=== PATIENT | female | born 1940 | race Caucasian/White ===

== ENCOUNTER 2018-08-10 13:05 | Inpatient (IN) | payer MEDICARE, OTHER, MEDICAID ==
[2018-08-10 14:09] LABS: ADD MAN DIFF? NO
[2018-08-10 14:16] LABS: BASOPHIL # 0.1 10^3/ul (0.0-0.1); BASOPHILS % 0.9 % (0.0-2.0); EOSINOPHILS % 0.3 % (0.0-7.0); HEMATOCRIT 35.8 % (37.0-47.0); HEMOGLOBIN 11.8 g/dl (12.0-16.0); LYMPHOCYTES # 2.3 10^3/ul (0.8-2.9); LYMPHOCYTES % 24.9 % (15.0-51.0); MEAN CORPUSCULAR HEMOGLOBIN 31.9 pg (29.0-33.0); MEAN CORPUSCULAR VOLUME 96.8 fl (82.0-101.0); MONOCYTE # 0.9 10^3/ul (0.3-0.9); MONOCYTES % 9.4 % (0.0-11.0); NEUTROPHIL # 5.5 10^3/ul (1.6-7.5); NEUTROPHILS % 59.7 % (39.0-77.0); PLATELET COUNT 142 10^3/UL (140-415)
[2018-08-10 14:16] LABS: WHITE BLOOD COUNT 9.3 10^3/ul (4.8-10.8)
[2018-08-10 14:35] LABS: INR 0.93; PROTIME 12.6 Sec (11.9-14.9)
[2018-08-10 14:36] LABS: PARTIAL THROMBOPLASTIN TIME 26.9 Sec (25.0-35.0)
[2018-08-10 14:43] LABS: ALANINE AMINOTRANSFERASE 7 IU/L (13-69); ALBUMIN 3.7 g/dl (3.3-4.9); ALBUMIN/GLOBULIN RATIO 1.08; ALKALINE PHOSPHATASE 57 IU/L (42-121); ANION GAP 19 (8-16); ASPARTATE AMINO TRANSFERASE 29 IU/L (15-46); BILIRUBIN,INDIRECT 0.3 mg/dl (0-1.1); BILIRUBIN,TOTAL 0.3 mg/dl (0.2-1.3); BLOOD UREA NITROGEN 84 mg/dl (7-20); CALCIUM 9.4 mg/dl (8.4-10.2); CARBON DIOXIDE 33 mmol/L (21-31); CHLORIDE 88 mmol/L (97-110); CREATININE 1.63 mg/dl (0.44-1.00); GLUCOSE 91 mg/dl (70-220); SODIUM 137 mmol/L (135-144); TOTAL PROTEIN 7.1 g/dl (6.1-8.1)
[2018-08-10 14:46] LABS: POTASSIUM 2.8 mmol/L (3.5-5.1)
[2018-08-10 14:47] LABS: TROPONIN-I 0.123 ng/ml (0.000-0.120)
[2018-08-10] MEDS: SOD CHLORIDE 0.9% 500 ML IV (15:00)
[2018-08-10] MEDS: ASPIRIN 81 MG TAB PO (15:00)
[2018-08-10] MEDS: POTASSIUM CHLORIDE 100 ML IVPB ×3 (15:26→20:18)
[2018-08-10] MEDS ORDERED: ACETAMINOPHEN 325 MG TAB PO (15:30)
[2018-08-10] MEDS ORDERED: ONDANSETRON 4 MG INJ IV (15:30)
[2018-08-10] MEDS: MAGNESIUM SULFATE 1 GM/D5W 100 ML IVPB (16:25)
[2018-08-10] MEDS ORDERED: HYPROMELLOSE BOTH EYES (21:00)
[2018-08-10] MEDS ORDERED: DEXTRAN BOTH EYES (21:00)
[2018-08-10] MEDS ORDERED: traMADol 50 MG TAB PO (21:00)
[2018-08-10] MEDS ORDERED: [UNRECOGNIZED DRUG - OTHER] BOTH EYES (21:00)
[2018-08-10] MEDS ORDERED: ARTIFICIAL TEARS 15 ML OPH BOTH EYES (21:30)
[2018-08-10] MEDS ORDERED: POTASSIUM CHLORIDE 30 MEQ in SOD CHLORIDE 0.45% 1,000 ML IV (22:00)
[2018-08-10] MEDS: DIVALPROEX (EC) 500 MG TAB PO (23:00)
[2018-08-10] MEDS: SOD CHLORIDE 0.9% 1,000 ML IV (23:21)
[2018-08-11] MEDS: PANTOPRAZOLE 40 MG INJ IV (00:01)
[2018-08-11] MEDS: SOD CHLORIDE 0.9% 1,000 ML IV ×2 (00:38→09:30)
[2018-08-11 01:48] LABS: TROPONIN-I 0.134 ng/ml (0.000-0.120)
[2018-08-11] MEDS: POTASSIUM CHLORIDE 100 ML IVPB (01:52)
[2018-08-11 06:58] LABS: WHITE BLOOD COUNT 6.1 10^3/ul (4.8-10.8)
[2018-08-11 06:58] LABS: ABNORMAL IP MESSAGE 1; HEMATOCRIT 30.8 % (37.0-47.0); HEMOGLOBIN 10.2 g/dl (12.0-16.0); MEAN CORPUSCULAR HEMOGLOBIN 32.4 pg (29.0-33.0); MEAN CORPUSCULAR HGB CONC 33.1 g/dl (32.0-37.0); MEAN CORPUSCULAR VOLUME 97.8 fl (82.0-101.0); MEAN PLATELET VOLUME 9.8 fl (7.4-10.4); PLATELET COUNT 116 10^3/UL (140-415); RED BLOOD COUNT 3.15 10^6/ul (4.20-5.40); RED CELL DISTRIBUTION WIDTH 13.2 % (11.5-14.5)
[2018-08-11 07:30] LABS: ADD MAN DIFF? YES; POSITIVE DIFF @See below
[2018-08-11 07:35] LABS: ANION GAP 14 (8-16); BLOOD UREA NITROGEN 54 mg/dl (7-20); CALCIUM 8.6 mg/dl (8.4-10.2); CARBON DIOXIDE 31 mmol/L (21-31); CHLORIDE 101 mmol/L (97-110); CREATININE 0.95 mg/dl (0.44-1.00); GLUCOSE 88 mg/dl (70-220); POTASSIUM 3.6 mmol/L (3.5-5.1); SODIUM 142 mmol/L (135-144)
[2018-08-11 07:36] LABS: TROPONIN-I 0.119 ng/ml (0.000-0.120)
[2018-08-11 09:29] LABS: BAND NEUTROPHILS #M 0.7 10^3/ul (0.0-0.6); BAND NEUTROPHILS % (M) 12 % (0-4); EOSINOPHILS % (M) 1 % (0-7); LYMPHOCYTES #M 1.1 10^3/ul (0.8-2.9); LYMPHOCYTES % (M) 19 % (15-51); METAMYELOCYTES %M 1 % (0-0); MONOCYTE #M 0.7 10^3/ul (0.3-0.9); MONOCYTES % (M) 13 % (0-11); MYELOCYTES #M 0.4 10^3/ul (0.0-0.0); MYELOCYTES % (M) 7 % (0-0); PLATELET ESTIMATE DECREASED; POIKILOCYTOSIS 1+ (0-0); REACTIVE LYMPHOCYTES #M 0.1 10^3/ul (0.0-0.0); REACTIVE LYMPHOCYTES% (M) 3 % (0-0); SEG NEUT #M 2.7 10^3/ul (1.6-7.5); SEGMENTED NEUTROPHILS (M) % 44 % (39-77); SMUDGE%M 3 % (0-0)
[2018-08-11] MEDS: ESCITALOPRAM 10 MG TAB PO (10:34)
[2018-08-11] MEDS: ASPIRIN 81 MG TAB PO (10:35)
[2018-08-11] MEDS: DIVALPROEX (EC) 500 MG TAB PO ×2 (10:35→20:23)
[2018-08-11] MEDS: ACETAMINOPHEN 325 MG TAB PO (10:35)
[2018-08-11] MEDS: POLYETHYLENE GLYCOL 17 GM PACKET PO ×2 (10:36→10:47)
[2018-08-11 14:13] LABS: TROPONIN-I 0.075 ng/ml (0.000-0.120)
[2018-08-11] MEDS: 1/2 NS + KCL 20 MEQ 1,000 ML IV (17:27)
[2018-08-12] MEDS: 1/2 NS + KCL 20 MEQ 1,000 ML IV ×2 (03:10→20:34)
[2018-08-12 07:13] LABS: WHITE BLOOD COUNT 5.5 10^3/ul (4.8-10.8)
[2018-08-12 07:13] LABS: ABNORMAL IP MESSAGE 1; HEMATOCRIT 30.2 % (37.0-47.0); HEMOGLOBIN 9.9 g/dl (12.0-16.0); MEAN CORPUSCULAR HEMOGLOBIN 32.5 pg (29.0-33.0); MEAN CORPUSCULAR HGB CONC 32.8 g/dl (32.0-37.0); MEAN PLATELET VOLUME 9.4 fl (7.4-10.4); PLATELET COUNT 116 10^3/UL (140-415); RED BLOOD COUNT 3.05 10^6/ul (4.20-5.40); RED CELL DISTRIBUTION WIDTH 13.2 % (11.5-14.5)
[2018-08-12 07:22] LABS: ADD MAN DIFF? YES; POSITIVE DIFF @See below
[2018-08-12 07:59] LABS: URIC ACID 9.9 mg/dl (3.1-7.9)
[2018-08-12 08:05] LABS: ANION GAP 12 (8-16); BLOOD UREA NITROGEN 27 mg/dl (7-20); CALCIUM 9.1 mg/dl (8.4-10.2); CARBON DIOXIDE 32 mmol/L (21-31); CHLORIDE 102 mmol/L (97-110); CREATININE 0.74 mg/dl (0.44-1.00); GLUCOSE 84 mg/dl (70-220); POTASSIUM 3.6 mmol/L (3.5-5.1); SODIUM 142 mmol/L (135-144)
[2018-08-12] MEDS: DIVALPROEX (EC) 500 MG TAB PO ×2 (09:00→20:34)
[2018-08-12] MEDS: ESCITALOPRAM 10 MG TAB PO (09:00)
[2018-08-12 10:02] LABS: BAND NEUTROPHILS #M 0.4 10^3/ul (0.0-0.6); BAND NEUTROPHILS % (M) 8 % (0-4); ERYTHROBLAST% (NRBC) (M) 1 % (0-0); LYMPHOCYTES #M 1.8 10^3/ul (0.8-2.9); LYMPHOCYTES % (M) 34 % (15-51); MONOCYTE #M 0.4 10^3/ul (0.3-0.9); MONOCYTES % (M) 9 % (0-11); MYELOCYTES #M 0.1 10^3/ul (0.0-0.0); MYELOCYTES % (M) 3 % (0-0); PLATELET ESTIMATE DECREASED; REACTIVE LYMPHOCYTES #M 0.1 10^3/ul (0.0-0.0); REACTIVE LYMPHOCYTES% (M) 3 % (0-0); SEG NEUT #M 2.4 10^3/ul (1.6-7.5); SEGMENTED NEUTROPHILS (M) % 43 % (39-77); SMUDGE%M 11 % (0-0)
[2018-08-12] MEDS: DICLOFENAC SODIUM 1% GEL 100 GM TUBE TP ×2 (12:28→20:35)
[2018-08-12] MEDS: LACTULOSE 30ML CUP PO ×4 (14:47→20:34)
[2018-08-12] MEDS: METHYLPREDNISOLONE 40 MG INJ IV (14:47)
[2018-08-12 15:50] LABS: RETICULOCYTE COUNT # 0.049 X10^6 (0.020-0.110); RETICULOCYTE COUNT % 1.8 % (0.5-1.5)
[2018-08-12 16:07] LABS: LACTATE DEHYDROGENASE 461 IU/L (313-618)
[2018-08-12 16:07] LABS: ANION GAP 11 (8-16); BLOOD UREA NITROGEN 21 mg/dl (7-20); CALCIUM 9.1 mg/dl (8.4-10.2); CARBON DIOXIDE 30 mmol/L (21-31); CHLORIDE 102 mmol/L (97-110); CREATININE 0.62 mg/dl (0.44-1.00); GLUCOSE 97 mg/dl (70-220); IRON 79 ug/dl (35-150); POTASSIUM 3.5 mmol/L (3.5-5.1); SODIUM 139 mmol/L (135-144)
[2018-08-12 16:16] LABS: % IRON SATURATION 32 % SAT (22-52); TOTAL IRON BINDING CAPACITY 247 ug/dl (241-421)
[2018-08-12] MEDS: FEBUXOSTAT 40 MG TABLET PO (16:16)
[2018-08-12 16:18] LABS: INR 0.99; PARTIAL THROMBOPLASTIN TIME 28.6 Sec (25.0-35.0); PROTIME 13.2 Sec (11.9-14.9)
[2018-08-12 16:21] LABS: D-DIMER 414.28 ng/ml (<460)
[2018-08-12 16:23] LABS: THROMBIN TIME 15.8 SEC (13.8-19.1)
[2018-08-12 16:42] LABS: CARCINOEMBRYONIC ANTIGEN 3.7 ng/ml (0.0-5.0)
[2018-08-12 17:23] LABS: ERYTHROCYTE SEDIMENTATION RATE 52 mm/Hr (0-30)
[2018-08-12 17:31] LABS: FOLATE > 20.0 ng/ml (2.8-20.0)
[2018-08-12 18:01] LABS: FIBRIN SPLIT PRODUCT <10 ug/ml (<10)
[2018-08-12 18:16] LABS: PLATELET COUNT 128 10^3/UL (140-415)
[2018-08-12] MEDS: ONDANSETRON 4 MG INJ IV (20:41)
[2018-08-12] MEDS: morphine 2 MG INJ IV (21:01)
[2018-08-13] MEDS: LACTULOSE 30ML CUP PO ×8 (02:54→21:00)
[2018-08-13] MEDS: POLYETHYLENE GLYCOL 17 GM PACKET PO (09:00)
[2018-08-13] MEDS: DICLOFENAC SODIUM 1% GEL 100 GM TUBE TP ×2 (10:05→21:18)
[2018-08-13] MEDS: LORAZEPAM 0.5 MG TAB PO ×2 (10:12→20:44)
[2018-08-13] MEDS: DIVALPROEX (EC) 500 MG TAB PO ×2 (10:12→21:00)
[2018-08-13] MEDS: FEBUXOSTAT 40 MG TABLET PO (10:12)
[2018-08-13] MEDS: METHYLPREDNISOLONE 40 MG INJ IV (10:12)
[2018-08-13] MEDS: ESCITALOPRAM 10 MG TAB PO (10:13)
[2018-08-13] MEDS: 1/2 NS + KCL 20 MEQ 1,000 ML IV ×2 (11:30→20:44)
[2018-08-13 11:37] LABS: WHITE BLOOD COUNT 6.6 10^3/ul (4.8-10.8)
[2018-08-13 11:38] LABS: ABNORMAL IP MESSAGE 1; HEMATOCRIT 30.3 % (37.0-47.0); MEAN CORPUSCULAR HEMOGLOBIN 31.9 pg (29.0-33.0); MEAN CORPUSCULAR VOLUME 96.8 fl (82.0-101.0); MEAN PLATELET VOLUME 9.5 fl (7.4-10.4); PLATELET COUNT 144 10^3/UL (140-415); RED BLOOD COUNT 3.13 10^6/ul (4.20-5.40); RED CELL DISTRIBUTION WIDTH 12.8 % (11.5-14.5)
[2018-08-13 11:44] LABS: POSITIVE DIFF @See below
[2018-08-13 11:45] LABS: ADD MAN DIFF? YES
[2018-08-13 11:58] LABS: ANION GAP 9 (8-16); BLOOD UREA NITROGEN 18 mg/dl (7-20); CALCIUM 9.4 mg/dl (8.4-10.2); CARBON DIOXIDE 33 mmol/L (21-31); CHLORIDE 100 mmol/L (97-110); CREATININE 0.68 mg/dl (0.44-1.00); GLUCOSE 80 mg/dl (70-220); IRON 90 ug/dl (35-150); POTASSIUM 4.2 mmol/L (3.5-5.1); SODIUM 138 mmol/L (135-144)
[2018-08-13 12:07] LABS: % IRON SATURATION 34 % SAT (22-52); TOTAL IRON BINDING CAPACITY 265 ug/dl (241-421)
[2018-08-13 12:10] LABS: LACTATE DEHYDROGENASE 545 IU/L (313-618)
[2018-08-13 12:10] LABS: CHOL/HDL RATIO 3.2 RATIO; CHOLESTEROL 170 mg/dl (100-200); HDL CHOLESTEROL 52 mg/dl (33-92); LDL CHOLESTEROL,CALCULATED 83 mg/dl; TRIGLYCERIDES 173 mg/dl (0-149)
[2018-08-13 12:15] LABS: FREE T4 (FREE THYROXINE) 1.17 ng/dl (0.78-2.44)
[2018-08-13 13:17] LABS: FOLATE > 20.0 ng/ml (2.8-20.0)
[2018-08-13 13:22] LABS: BAND NEUTROPHILS #M 0.3 10^3/ul (0.0-0.6); BAND NEUTROPHILS % (M) 5 % (0-4); LYMPHOCYTES #M 1.8 10^3/ul (0.8-2.9); LYMPHOCYTES % (M) 28 % (15-51); MONOCYTE #M 0.3 10^3/ul (0.3-0.9); MONOCYTES % (M) 5 % (0-11); MYELOCYTES #M 0.1 10^3/ul (0.0-0.0); MYELOCYTES % (M) 2 % (0-0); OVALOCYTES 1+ (0-0); PLATELET ESTIMATE NORMAL; PROMYELOCYTES #M 0.1 10^3/ul (0-0); PROMYELOCYTES % (M) 2 % (0-0); REACTIVE LYMPHOCYTES #M 0.4 10^3/ul (0.0-0.0); REACTIVE LYMPHOCYTES% (M) 7 % (0-0); SEG NEUT #M 3.4 10^3/ul (1.6-7.5); SEGMENTED NEUTROPHILS (M) % 51 % (39-77); SMUDGE%M 70 % (0-0)
[2018-08-14] MEDS: LACTULOSE 30ML CUP PO ×8 (03:00→21:00)
[2018-08-14] MEDS: 1/2 NS + KCL 20 MEQ 1,000 ML IV ×2 (05:10→21:32)
[2018-08-14] MEDS: LORAZEPAM 0.5 MG TAB PO ×2 (05:41→16:24)
[2018-08-14] MEDS: SOD CHLORIDE 0.9% 500 ML IV (08:00)
[2018-08-14] MEDS: FEBUXOSTAT 40 MG TABLET PO (09:00)
[2018-08-14] MEDS: POLYETHYLENE GLYCOL 17 GM PACKET PO (09:00)
[2018-08-14] MEDS: DIVALPROEX (EC) 500 MG TAB PO ×2 (09:00→21:31)
[2018-08-14] MEDS: METHYLPREDNISOLONE 40 MG INJ IV (09:20)
[2018-08-14] MEDS: ESCITALOPRAM 10 MG TAB PO (09:21)
[2018-08-14] MEDS: DICLOFENAC SODIUM 1% GEL 100 GM TUBE TP ×2 (09:22→21:31)
[2018-08-14 17:04] LABS: ABNORMAL IP MESSAGE 1; HEMATOCRIT 31.8 % (37.0-47.0); HEMOGLOBIN 10.4 g/dl (12.0-16.0); MEAN CORPUSCULAR HEMOGLOBIN 32.1 pg (29.0-33.0); MEAN CORPUSCULAR HGB CONC 32.7 g/dl (32.0-37.0); MEAN CORPUSCULAR VOLUME 98.1 fl (82.0-101.0); MEAN PLATELET VOLUME 9.3 fl (7.4-10.4); PLATELET COUNT 130 10^3/UL (140-415); RED BLOOD COUNT 3.24 10^6/ul (4.20-5.40); RED CELL DISTRIBUTION WIDTH 12.6 % (11.5-14.5)
[2018-08-14 17:04] LABS: WHITE BLOOD COUNT 5.9 10^3/ul (4.8-10.8)
[2018-08-14 17:23] LABS: URIC ACID 4.5 mg/dl (3.1-7.9)
[2018-08-14 17:23] LABS: ADD MAN DIFF? YES; ANION GAP 12 (8-16); BLOOD UREA NITROGEN 13 mg/dl (7-20); CALCIUM 9.1 mg/dl (8.4-10.2); CARBON DIOXIDE 29 mmol/L (21-31); CHLORIDE 100 mmol/L (97-110); CREATININE 0.57 mg/dl (0.44-1.00); GLUCOSE 120 mg/dl (70-220); POSITIVE DIFF @See below; POTASSIUM 4.8 mmol/L (3.5-5.1); SODIUM 136 mmol/L (135-144)
[2018-08-14 18:22] LABS: BAND NEUTROPHILS #M 0.2 10^3/ul (0.0-0.6); BAND NEUTROPHILS % (M) 4 % (0-4); BASOPHIL #M 0.1 10^3/ul (0.0-0.0); BASOPHILS % (M) 2 % (0-2); GIANT THROMBO% (M) 1 % (0-0); LYMPHOCYTES #M 1.2 10^3/ul (0.8-2.9); LYMPHOCYTES % (M) 21 % (15-51); MONOCYTE #M 0.4 10^3/ul (0.3-0.9); MONOCYTES % (M) 7 % (0-11); MYELOCYTES #M 0.1 10^3/ul (0.0-0.0); MYELOCYTES % (M) 3 % (0-0); PLATELET ESTIMATE NORMAL; SEG NEUT #M 3.7 10^3/ul (1.6-7.5); SEGMENTED NEUTROPHILS (M) % 63 % (39-77); SMUDGE%M 5 % (0-0)
[2018-08-14 18:24] LABS: ERYTHROCYTE SEDIMENTATION RATE 50 mm/Hr (0-30)
[2018-08-15] MEDS: LORAZEPAM 0.5 MG TAB PO ×2 (00:44→20:16)
[2018-08-15] MEDS: LACTULOSE 30ML CUP PO ×8 (03:00→20:17)
[2018-08-15] MEDS: POLYETHYLENE GLYCOL 17 GM PACKET PO (09:00)
[2018-08-15] MEDS: FEBUXOSTAT 40 MG TABLET PO (09:00)
[2018-08-15] MEDS: ESCITALOPRAM 10 MG TAB PO (09:04)
[2018-08-15] MEDS: DIVALPROEX (EC) 500 MG TAB PO ×2 (09:05→20:16)
[2018-08-15] MEDS: METHYLPREDNISOLONE 40 MG INJ IV (09:06)
[2018-08-15] MEDS: DICLOFENAC SODIUM 1% GEL 100 GM TUBE TP ×2 (09:14→20:17)
[2018-08-15] MEDS: FUROSEMIDE 20 MG INJ IV (15:02)
[2018-08-15] MEDS: 1/2 NS + KCL 20 MEQ 1,000 ML IV (17:58)
[2018-08-16] MEDS: LACTULOSE 30ML CUP PO ×8 (02:46→21:00)
[2018-08-16 06:19] LABS: ABNORMAL IP MESSAGE 1; HEMATOCRIT 29.2 % (37.0-47.0); HEMOGLOBIN 9.5 g/dl (12.0-16.0); MEAN CORPUSCULAR HEMOGLOBIN 32.1 pg (29.0-33.0); MEAN CORPUSCULAR HGB CONC 32.5 g/dl (32.0-37.0); MEAN CORPUSCULAR VOLUME 98.6 fl (82.0-101.0); MEAN PLATELET VOLUME 9.2 fl (7.4-10.4); NUCLEATED RED BLOOD CELLS% 0.2 /100WBC (0.0-0.0); PLATELET COUNT 141 10^3/UL (140-415); RED BLOOD COUNT 2.96 10^6/ul (4.20-5.40); RED CELL DISTRIBUTION WIDTH 13.2 % (11.5-14.5)
[2018-08-16 06:19] LABS: WHITE BLOOD COUNT 8.3 10^3/ul (4.8-10.8)
[2018-08-16 06:49] LABS: ADD MAN DIFF? YES; POSITIVE DIFF @See below
[2018-08-16 06:53] LABS: ANION GAP 8 (8-16); BLOOD UREA NITROGEN 14 mg/dl (7-20); CALCIUM 8.6 mg/dl (8.4-10.2); CARBON DIOXIDE 28 mmol/L (21-31); CHLORIDE 107 mmol/L (97-110); CREATININE 0.47 mg/dl (0.44-1.00); GLUCOSE 86 mg/dl (70-220); POTASSIUM 4.3 mmol/L (3.5-5.1); SODIUM 139 mmol/L (135-144)
[2018-08-16] MEDS: 1/2 NS + KCL 20 MEQ 1,000 ML IV ×3 (07:10→23:50)
[2018-08-16] MEDS: FEBUXOSTAT 40 MG TABLET PO (08:54)
[2018-08-16] MEDS: METHYLPREDNISOLONE 40 MG INJ IV (08:54)
[2018-08-16] MEDS: DIVALPROEX (EC) 500 MG TAB PO ×2 (08:54→21:51)
[2018-08-16] MEDS: DICLOFENAC SODIUM 1% GEL 100 GM TUBE TP ×2 (08:54→21:52)
[2018-08-16] MEDS: ESCITALOPRAM 10 MG TAB PO (08:54)
[2018-08-16] MEDS: POLYETHYLENE GLYCOL 17 GM PACKET PO (08:55)
[2018-08-16 09:17] LABS: ANISOCYTOSIS 1+ (0-0); BAND NEUTROPHILS #M 0.2 10^3/ul (0.0-0.6); BAND NEUTROPHILS % (M) 3 % (0-4); LYMPHOCYTES #M 4.1 10^3/ul (0.8-2.9); LYMPHOCYTES % (M) 50 % (15-51); METAMYELOCYTES #M 0.1 10^3/ul (0.0-0.0); METAMYELOCYTES %M 2 % (0-0); MONOCYTE #M 0.4 10^3/ul (0.3-0.9); MONOCYTES % (M) 5 % (0-11); MYELOCYTES % (M) 1 % (0-0); PLATELET ESTIMATE NORMAL; SEG NEUT #M 3.3 10^3/ul (1.6-7.5); SEGMENTED NEUTROPHILS (M) % 39 % (39-77); SMUDGE%M 44 % (0-0)
[2018-08-16] MEDS: LORAZEPAM 0.5 MG TAB PO (21:51)
[2018-08-16 23:00] LABS: OCCULT BLOOD STOOL NEGATIVE (NEGATIVE)
[2018-08-17] MEDS: LACTULOSE 30ML CUP PO ×8 (02:11→20:25)
[2018-08-17] MEDS: METHYLPREDNISOLONE 40 MG INJ IV (08:53)
[2018-08-17] MEDS: DICLOFENAC SODIUM 1% GEL 100 GM TUBE TP ×2 (08:53→20:25)
[2018-08-17] MEDS: FEBUXOSTAT 40 MG TABLET PO (08:53)
[2018-08-17] MEDS: DIVALPROEX (EC) 500 MG TAB PO ×2 (08:53→20:25)
[2018-08-17] MEDS: ESCITALOPRAM 10 MG TAB PO (08:53)
[2018-08-17] MEDS: POLYETHYLENE GLYCOL 17 GM PACKET PO (08:54)
[2018-08-17] MEDS: FUROSEMIDE 20 MG INJ IV (12:51)
[2018-08-17] MEDS: 1/2 NS + KCL 20 MEQ 1,000 ML IV ×2 (12:52→16:24)
[2018-08-17] MEDS: LORAZEPAM 0.5 MG TAB PO (20:25)
[2018-08-17] MEDS: ONDANSETRON 4 MG INJ IV (20:25)
[2018-08-18] MEDS: LACTULOSE 30ML CUP PO ×9 (03:00→23:58)
[2018-08-18] MEDS: DICLOFENAC SODIUM 1% GEL 100 GM TUBE TP ×2 (08:21→20:54)
[2018-08-18] MEDS: DIVALPROEX (EC) 500 MG TAB PO ×2 (08:23→20:46)
[2018-08-18] MEDS: METHYLPREDNISOLONE 40 MG INJ IV (08:23)
[2018-08-18] MEDS: ESCITALOPRAM 10 MG TAB PO (08:24)
[2018-08-18] MEDS: POLYETHYLENE GLYCOL 17 GM PACKET PO (08:24)
[2018-08-18] MEDS: FUROSEMIDE 20 MG TAB PO (08:25)
[2018-08-18] MEDS: FEBUXOSTAT 40 MG TABLET PO (08:25)
[2018-08-18] MEDS: 1/2 NS + KCL 20 MEQ 1,000 ML IV (10:44)
[2018-08-18] MEDS: ONDANSETRON 4 MG INJ IV (10:53)
[2018-08-18] MEDS: LORAZEPAM 0.5 MG TAB PO ×2 (10:53→20:49)
[2018-08-19] MEDS: 1/2 NS + KCL 20 MEQ 1,000 ML IV ×2 (01:50→17:42)
[2018-08-19] MEDS: LACTULOSE 30ML CUP PO ×7 (03:00→21:00)
[2018-08-19] MEDS: ESCITALOPRAM 10 MG TAB PO (08:08)
[2018-08-19] MEDS: METHYLPREDNISOLONE 40 MG INJ IV (08:08)
[2018-08-19] MEDS: FUROSEMIDE 20 MG TAB PO (08:08)
[2018-08-19] MEDS: POLYETHYLENE GLYCOL 17 GM PACKET PO (08:09)
[2018-08-19] MEDS: DIVALPROEX (EC) 500 MG TAB PO ×2 (08:09→21:02)
[2018-08-19] MEDS: FEBUXOSTAT 40 MG TABLET PO (08:09)
[2018-08-19] MEDS: DICLOFENAC SODIUM 1% GEL 100 GM TUBE TP ×2 (08:10→21:02)
[2018-08-20] MEDS: LACTULOSE 30ML CUP PO ×9 (03:00→21:00)
[2018-08-20] MEDS: POLYETHYLENE GLYCOL 17 GM PACKET PO (09:00)
[2018-08-20] MEDS: ESCITALOPRAM 10 MG TAB PO (09:38)
[2018-08-20] MEDS: FEBUXOSTAT 40 MG TABLET PO (09:38)
[2018-08-20] MEDS: DIVALPROEX (EC) 500 MG TAB PO ×2 (09:38→20:54)
[2018-08-20] MEDS: METHYLPREDNISOLONE 40 MG INJ IV (09:39)
[2018-08-20] MEDS: FUROSEMIDE 20 MG TAB PO (09:41)
[2018-08-20] MEDS: LOSARTAN 25 MG TAB PO (09:42)
[2018-08-20] MEDS: DICLOFENAC SODIUM 1% GEL 100 GM TUBE TP ×2 (09:42→20:54)
[2018-08-20] MEDS: 1/2 NS + KCL 20 MEQ 1,000 ML IV (11:10)
[2018-08-20 14:07] LABS: ADD MAN DIFF? NO
[2018-08-20 14:10] LABS: WHITE BLOOD COUNT 8.9 10^3/ul (4.8-10.8)
[2018-08-20 14:10] LABS: BASOPHILS % 0.3 % (0.0-2.0); EOSINOPHILS % 0.1 % (0.0-7.0); HEMATOCRIT 29.1 % (37.0-47.0); HEMOGLOBIN 9.6 g/dl (12.0-16.0); LYMPHOCYTES # 1.4 10^3/ul (0.8-2.9); LYMPHOCYTES % 15.5 % (15.0-51.0); MEAN CORPUSCULAR HEMOGLOBIN 32.5 pg (29.0-33.0); MEAN CORPUSCULAR VOLUME 98.6 fl (82.0-101.0); MEAN PLATELET VOLUME 9.1 fl (7.4-10.4); MONOCYTE # 0.4 10^3/ul (0.3-0.9); MONOCYTES % 4.4 % (0.0-11.0); NEUTROPHIL # 6.7 10^3/ul (1.6-7.5); PLATELET COUNT 223 10^3/UL (140-415); RED BLOOD COUNT 2.95 10^6/ul (4.20-5.40)
[2018-08-20 14:27] LABS: ANION GAP 9 (8-16); BLOOD UREA NITROGEN 19 mg/dl (7-20); CALCIUM 8.9 mg/dl (8.4-10.2); CARBON DIOXIDE 30 mmol/L (21-31); CHLORIDE 102 mmol/L (97-110); CREATININE 0.53 mg/dl (0.44-1.00); GLUCOSE 115 mg/dl (70-220); SODIUM 137 mmol/L (135-144)
[2018-08-20] MEDS: LORAZEPAM 0.5 MG TAB PO (16:55)
[2018-08-20] MEDS ORDERED: morphine LIQ (10 MG/5 ML) CUP PO (17:30)
[2018-08-21] MEDS: LACTULOSE 30ML CUP PO ×7 (03:00→16:49)
[2018-08-21 05:06] LABS: ADD MAN DIFF? NO
[2018-08-21 05:30] LABS: WHITE BLOOD COUNT 9.2 10^3/ul (4.8-10.8)
[2018-08-21 05:30] LABS: BASOPHILS % 0.2 % (0.0-2.0); HEMATOCRIT 30.3 % (37.0-47.0); HEMOGLOBIN 10.2 g/dl (12.0-16.0); LYMPHOCYTES # 2.8 10^3/ul (0.8-2.9); MEAN CORPUSCULAR HEMOGLOBIN 32.6 pg (29.0-33.0); MEAN CORPUSCULAR HGB CONC 33.7 g/dl (32.0-37.0); MEAN CORPUSCULAR VOLUME 96.8 fl (82.0-101.0); MEAN PLATELET VOLUME 9.2 fl (7.4-10.4); MONOCYTE # 0.6 10^3/ul (0.3-0.9); MONOCYTES % 6.4 % (0.0-11.0); NEUTROPHIL # 5.4 10^3/ul (1.6-7.5); NEUTROPHILS % 58.9 % (39.0-77.0); PLATELET COUNT 231 10^3/UL (140-415); RED BLOOD COUNT 3.13 10^6/ul (4.20-5.40); RED CELL DISTRIBUTION WIDTH 13.7 % (11.5-14.5)
[2018-08-21 05:58] LABS: ANION GAP 8 (8-16); BLOOD UREA NITROGEN 20 mg/dl (7-20); CARBON DIOXIDE 34 mmol/L (21-31); CHLORIDE 100 mmol/L (97-110); CREATININE 0.54 mg/dl (0.44-1.00); GLUCOSE 82 mg/dl (70-220); POTASSIUM 3.6 mmol/L (3.5-5.1); SODIUM 138 mmol/L (135-144)
[2018-08-21] MEDS: METHYLPREDNISOLONE 40 MG INJ IV (08:54)
[2018-08-21] MEDS: DIVALPROEX (EC) 500 MG TAB PO (08:55)
[2018-08-21] MEDS: LOSARTAN 25 MG TAB PO (08:55)
[2018-08-21] MEDS: DICLOFENAC SODIUM 1% GEL 100 GM TUBE TP (08:56)
[2018-08-21] MEDS: FUROSEMIDE 20 MG TAB PO (08:56)
[2018-08-21] MEDS: ESCITALOPRAM 10 MG TAB PO (08:56)
[2018-08-21] MEDS: FEBUXOSTAT 40 MG TABLET PO (08:56)
[2018-08-21] MEDS: LORAZEPAM 0.5 MG TAB PO ×2 (08:59→17:16)
[2018-08-21] MEDS: POLYETHYLENE GLYCOL 17 GM PACKET PO (09:00)
== END 2018-08-21 19:00 | DRG 377 ==
LOC: MS1 08-20 12:29 → E/R 13:05 → TEL 15:17
DX: K92.2 Gastrointestinal hemorrhage, unspecified (principal); I21.4 Non-ST elevation (NSTEMI) myocardial infarction; N17.9 Acute kidney failure, unspecified; R64 Cachexia; D72.825 Bandemia; D69.6 Thrombocytopenia, unspecified; D64.9 Anemia, unspecified; E87.6 Hypokalemia; F31.9 Bipolar disorder, unspecified; I10 Essential (primary) hypertension; K62.89 Other specified diseases of anus and rectum; L89.152 Pressure ulcer of sacral region, stage 2; M10.9 Gout, unspecified; R60.9 Edema, unspecified; R53.1 Weakness; Z66 Do not resuscitate; Z68.20 Body mass index [BMI] 20.0-20.9, adult; Z74.01 Bed confinement status; Z87.891 Personal history of nicotine dependence
CPT/HCPCS: 36415; 71045; 73560; 73620; 76775; 80048; 80053; 80061; 82270; 82306; 82378; 82607; 82728; 82746; 83540; 83615; 84439; 84443; 84484; 84560; 85025; 85045; 85049; 85362; 85378; 85384; 85610; 85651; 85670; 85730; 86850; 86900; 86901; 87081; 92526; 92610; 93005; 93306; 93970; 99291-25

== ENCOUNTER 2019-04-23 04:18 | Inpatient (IN) | payer MEDICARE, OTHER ==
[2019-04-23 04:44] LABS: ABNORMAL IP MESSAGE 1; HEMATOCRIT 21.4 % (37.0-47.0); MEAN CORPUSCULAR HEMOGLOBIN 31.2 pg (29.0-33.0); MEAN CORPUSCULAR HGB CONC 29.9 g/dl (32.0-37.0); MEAN CORPUSCULAR VOLUME 104.4 fl (82.0-101.0); MEAN PLATELET VOLUME 11.6 fl (7.4-10.4); NUCLEATED RED BLOOD CELLS% 0.8 /100WBC (0.0-0.0); PLATELET COUNT 195 10^3/UL (140-415); RED BLOOD COUNT 2.05 10^6/ul (4.20-5.40); RED CELL DISTRIBUTION WIDTH 15.3 % (11.5-14.5)
[2019-04-23 04:44] LABS: WHITE BLOOD COUNT 8.9 10^3/ul (4.8-10.8)
[2019-04-23 04:49] LABS: POSITIVE DIFF @See below
[2019-04-23] MEDS: SOD CHLORIDE 0.9% 1,000 ML IV (04:49)
[2019-04-23 04:50] LABS: HEMOGLOBIN 6.4 g/dl (12.0-16.0)
[2019-04-23 04:51] LABS: ADD MAN DIFF? YES
[2019-04-23 05:02] LABS: ALANINE AMINOTRANSFERASE 61 IU/L (13-69); ALBUMIN 1.5 g/dl (3.3-4.9); ALBUMIN/GLOBULIN RATIO 0.78; ALKALINE PHOSPHATASE 55 IU/L (42-121); ANION GAP 3 (5-13); ASPARTATE AMINO TRANSFERASE 122 IU/L (15-46); BILIRUBIN,INDIRECT 0.1 mg/dl (0-1.1); BILIRUBIN,TOTAL 0.1 mg/dl (0.2-1.3); BLOOD UREA NITROGEN 91 mg/dl (7-20); CARBON DIOXIDE 19 mmol/L (21-31); CHLORIDE 133 mmol/L (97-110); CREATININE 1.18 mg/dl (0.44-1.00); GLUCOSE 67 mg/dl (70-220); SODIUM 155 mmol/L (135-144); TOTAL PROTEIN 3.4 g/dl (6.1-8.1)
[2019-04-23 05:03] LABS: INR 1.41; PROTIME 17.4 Sec (11.9-14.9); PT RATIO 1.4
[2019-04-23 05:04] LABS: PARTIAL THROMBOPLASTIN TIME 30.4 Sec (23.0-35.0)
[2019-04-23 05:15] LABS: CALCIUM 4.7 mg/dl (8.4-10.2); POTASSIUM 2.3 mmol/L (3.5-5.1)
[2019-04-23 06:23] LABS: IMMEDIATE SPIN CROSSMATCH 1 2
[2019-04-23 06:24] LABS: ANISOCYTOSIS 1+ (0-0); BAND NEUTROPHILS #M 1.8 10^3/ul (0.0-0.6); BAND NEUTROPHILS % (M) 21 % (0-4); EOSINOPHILS % (M) 1 % (0-7); HYPOCHROMASIA 2+ (0-0); LYMPHOCYTES #M 0.8 10^3/ul (0.8-2.9); LYMPHOCYTES % (M) 10 % (15-51); METAMYELOCYTES %M 1 % (0-0); MONOCYTE #M 0.3 10^3/ul (0.3-0.9); MONOCYTES % (M) 4 % (0-11); MYELOCYTES #M 0.1 10^3/ul (0.0-0.0); MYELOCYTES % (M) 2 % (0-0); PLATELET ESTIMATE NORMAL; SEG NEUT #M 5.6 10^3/ul (1.6-7.5); SEGMENTED NEUTROPHILS (M) % 61 % (39-77); SMUDGE%M 56 % (0-0)
[2019-04-23 06:28] LABS: ADD UMIC YES; UR ASCORBIC ACID NEGATIVE (NEGATIVE); UR BACTERIA FEW /HPF (NONE SEEN); UR BILIRUBIN (Dip) NEGATIVE (NEGATIVE); UR BLOOD (Dip) 1+ mg/dL (NEGATIVE); UR CLARITY SLIGHTLY CLOUDY (CLEAR); UR COLOR YELLOW (YELLOW); UR GLUCOSE (Dip) NEGATIVE (NEGATIVE); UR KETONES (Dip) NEGATIVE (NEGATIVE); UR LEUKOCYTE ESTERASE (Dip) TRACE Leu/ul (NEGATIVE); UR MUCUS FEW /HPF (NONE SEEN); UR NITRITE (Dip) NEGATIVE (NEGATIVE); UR RBC 1 /HPF (0-5); UR RENAL EPITHELIAL CELL FEW /HPF (NONE SEEN); UR SPECIFIC GRAVITY (Dip) 1.017 (1.003-1.030); UR SQUAMOUS EPITHELIAL CELL FEW /HPF (FEW); UR TOTAL PROTEIN (Dip) NEGATIVE (NEGATIVE); UR UROBILINOGEN (Dip) NEGATIVE (NEGATIVE); UR WBC 3 /HPF (0-5)
[2019-04-23] MEDS ORDERED: ACETAMINOPHEN 325 MG TAB PO ×2 (06:30→13:00)
[2019-04-23] MEDS ORDERED: ONDANSETRON 4 MG INJ IV ×2 (06:30→13:00)
[2019-04-23] MEDS: POTASSIUM CHLORIDE 100 ML IVPB ×2 (06:53→09:16)
[2019-04-23 07:20] LABS: LACTIC ACID 2.4 mmol/L (0.5-2.0)
[2019-04-23 09:17] LABS: LACTIC ACID 2.5 mmol/L (0.5-2.0)
[2019-04-23] MEDS ORDERED: LORAZEPAM 2 MG INJ IV (13:00)
[2019-04-23] MEDS ORDERED: NITROGLYCERIN (SL) 0.4 MG TAB SL (13:00)
[2019-04-23] MEDS ORDERED: NACL 0.9% 3 ML SYG IV (13:00)
[2019-04-23] MEDS ORDERED: DOCUSATE SODIUM 100 MG CAP PO (13:00)
[2019-04-23] MEDS ORDERED: MAGNESIUM HYDROXIDE 30ML CUP PO (13:00)
[2019-04-23] MEDS: D5W-0.45 NACL + KCL 20 MEQ 1,000 ML IV ×2 (13:18→23:48)
[2019-04-23] MEDS: CEFEPIME 1GM/50 ML (PMX) 50 ML IVPB ×2 (14:48→20:53)
[2019-04-23] MEDS ORDERED: PENDING SANTYL ORDER FOR WOUND CARE XX (18:00)
[2019-04-23] MEDS: FAMOTIDINE 20 MG INJ IV (20:46)
[2019-04-23] MEDS: ACETAMINOPHEN 650 MG SUPP PR (20:46)
[2019-04-23] MEDS: ENALAPRILAT 1.25 MG INJ IV (20:58)
[2019-04-23] MEDS: LEVALBUTEROL (NEB) 0.63 MG/3 ML AMP HHN (23:59)
[2019-04-24] MEDS: LEVALBUTEROL (NEB) 0.63 MG/3 ML AMP HHN ×4 (02:07→19:41)
[2019-04-24] MEDS: CEFTRIAXONE 1 GM/50 ML (PMX) 50 ML IVPB (03:19)
[2019-04-24] MEDS: AZITHROMYCIN 500MG/NS (PMX) 250 ML IV (03:21)
[2019-04-24 07:51] LABS: ABNORMAL IP MESSAGE 1; HEMATOCRIT 45.1 % (37.0-47.0); HEMOGLOBIN 13.5 g/dl (12.0-16.0); MEAN CORPUSCULAR HEMOGLOBIN 30.8 pg (29.0-33.0); MEAN CORPUSCULAR HGB CONC 29.9 g/dl (32.0-37.0); MEAN CORPUSCULAR VOLUME 102.7 fl (82.0-101.0); MEAN PLATELET VOLUME 11.1 fl (7.4-10.4); NUCLEATED RED BLOOD CELLS% 0.7 /100WBC (0.0-0.0); PLATELET COUNT 200 10^3/UL (140-415); RED BLOOD COUNT 4.39 10^6/ul (4.20-5.40); RED CELL DISTRIBUTION WIDTH 16.3 % (11.5-14.5)
[2019-04-24 07:51] LABS: WHITE BLOOD COUNT 7.1 10^3/ul (4.8-10.8)
[2019-04-24 07:56] LABS: POSITIVE DIFF @See below
[2019-04-24 07:57] LABS: ADD MAN DIFF? YES
[2019-04-24 08:22] LABS: ALANINE AMINOTRANSFERASE 68 IU/L (13-69); ALBUMIN 2.7 g/dl (3.3-4.9); ALBUMIN/GLOBULIN RATIO 0.84; ALKALINE PHOSPHATASE 114 IU/L (42-121); ANION GAP 7 (5-13); ASPARTATE AMINO TRANSFERASE 86 IU/L (15-46); BILIRUBIN,INDIRECT 0.2 mg/dl (0-1.1); BILIRUBIN,TOTAL 0.2 mg/dl (0.2-1.3); BLOOD UREA NITROGEN 74 mg/dl (7-20); CALCIUM 8.3 mg/dl (8.4-10.2); CARBON DIOXIDE 26 mmol/L (21-31); CHLORIDE 131 mmol/L (97-110); CREATININE 1.01 mg/dl (0.44-1.00); GLUCOSE 147 mg/dl (70-220); POTASSIUM 4.6 mmol/L (3.5-5.1); TOTAL PROTEIN 5.9 g/dl (6.1-8.1)
[2019-04-24] MEDS: D5W-0.45 NACL + KCL 20 MEQ 1,000 ML IV (08:39)
[2019-04-24 08:45] LABS: SODIUM 164 mmol/L (135-144)
[2019-04-24] MEDS: DEXTROSE 5% 1,000 ML IV (10:20)
[2019-04-24 10:47] LABS: ANISOCYTOSIS 1+ (0-0); BAND NEUTROPHILS #M 2.5 10^3/ul (0.0-0.6); BAND NEUTROPHILS % (M) 36 % (0-4); LYMPHOCYTES #M 0.8 10^3/ul (0.8-2.9); LYMPHOCYTES % (M) 12 % (15-51); METAMYELOCYTES #M 0.1 10^3/ul (0.0-0.0); METAMYELOCYTES %M 2 % (0-0); MONOCYTE #M 0.2 10^3/ul (0.3-0.9); MONOCYTES % (M) 4 % (0-11); MYELOCYTES % (M) 1 % (0-0); PLATELET ESTIMATE NORMAL; POIKILOCYTOSIS 1+ (0-0); REACTIVE LYMPHOCYTES% (M) 1 % (0-0); SEG NEUT #M 3.3 10^3/ul (1.6-7.5); SEGMENTED NEUTROPHILS (M) % 44 % (39-77); SMUDGE%M 52 % (0-0)
[2019-04-24] MEDS ORDERED: VANCOMYCIN IV PER PHARMACY XX (11:30)
[2019-04-24] MEDS: ACETAMINOPHEN 650 MG SUPP PR (11:38)
[2019-04-24] MEDS: VANCOMYCIN HCL 1.25 GM in SOD CHLORIDE 0.9% 250 ML IVPB (12:51)
[2019-04-24 14:48] LABS: ANION GAP 3 (5-13); BLOOD UREA NITROGEN 65 mg/dl (7-20); CALCIUM 7.9 mg/dl (8.4-10.2); CARBON DIOXIDE 27 mmol/L (21-31); CHLORIDE 131 mmol/L (97-110); CREATININE 0.84 mg/dl (0.44-1.00); GLUCOSE 113 mg/dl (70-220); POTASSIUM 4.2 mmol/L (3.5-5.1)
[2019-04-24 14:58] LABS: CREATININE,URINE RANDOM 51.74 mg/dl (20-320); SODIUM 161 mmol/L (135-144)
[2019-04-24 14:58] LABS: SODIUM,URINE RANDOM 13 mmol/L (30-90)
[2019-04-24 16:16] LABS: ADD UMIC YES; UR ASCORBIC ACID NEGATIVE (NEGATIVE); UR BACTERIA FEW /HPF (NONE SEEN); UR BILIRUBIN (Dip) NEGATIVE (NEGATIVE); UR BLOOD (Dip) 1+ mg/dL (NEGATIVE); UR CLARITY CLOUDY (CLEAR); UR COLOR YELLOW (YELLOW); UR GLUCOSE (Dip) NEGATIVE (NEGATIVE); UR KETONES (Dip) NEGATIVE (NEGATIVE); UR LEUKOCYTE ESTERASE (Dip) NEGATIVE Leu/ul (NEGATIVE); UR MUCUS FEW /HPF (NONE SEEN); UR NITRITE (Dip) NEGATIVE (NEGATIVE); UR RBC 7 /HPF (0-5); UR TOTAL PROTEIN (Dip) 1+ mg/dl (NEGATIVE); UR UROBILINOGEN (Dip) NEGATIVE (NEGATIVE); UR WBC 5 /HPF (0-5)
[2019-04-24 17:13] LABS: OSMOLALITY,URINE 605 mOsm/kg (250-1200)
[2019-04-24] MEDS: FAMOTIDINE 20 MG INJ IV (21:46)
[2019-04-24] MEDS: CEFEPIME 1GM/50 ML (PMX) 50 ML IVPB (21:46)
[2019-04-25] MEDS: DEXTROSE 5% 1,000 ML IV ×3 (00:24→13:38)
[2019-04-25] MEDS: AZITHROMYCIN 500MG/NS (PMX) 250 ML IV (00:25)
[2019-04-25] MEDS: LEVALBUTEROL (NEB) 0.63 MG/3 ML AMP HHN ×4 (02:16→20:18)
[2019-04-25 06:48] LABS: ADD MAN DIFF? NO
[2019-04-25 06:55] LABS: WHITE BLOOD COUNT 7.7 10^3/ul (4.8-10.8)
[2019-04-25 06:55] LABS: ABNORMAL IP MESSAGE 1; BASOPHILS % 0.5 % (0.0-2.0); EOSINOPHILS % 0.1 % (0.0-7.0); HEMATOCRIT 40.1 % (37.0-47.0); HEMOGLOBIN 12.3 g/dl (12.0-16.0); LYMPHOCYTES % 13.2 % (15.0-51.0); MEAN CORPUSCULAR HGB CONC 30.7 g/dl (32.0-37.0); MEAN PLATELET VOLUME 11.6 fl (7.4-10.4); MONOCYTE # 0.1 10^3/ul (0.3-0.9); MONOCYTES % 0.9 % (0.0-11.0); NEUTROPHIL # 6.4 10^3/ul (1.6-7.5); NEUTROPHILS % 83.4 % (39.0-77.0); NUCLEATED RED BLOOD CELLS% 0.3 /100WBC (0.0-0.0); PLATELET COUNT 188 10^3/UL (140-415); RED BLOOD COUNT 3.97 10^6/ul (4.20-5.40); RED CELL DISTRIBUTION WIDTH 16.1 % (11.5-14.5)
[2019-04-25 06:56] LABS: POSITIVE DIFF @See below
[2019-04-25 07:15] LABS: ANION GAP 3 (5-13); BLOOD UREA NITROGEN 51 mg/dl (7-20); CALCIUM 8.3 mg/dl (8.4-10.2); CARBON DIOXIDE 25 mmol/L (21-31); CHLORIDE 130 mmol/L (97-110); CREATININE 0.72 mg/dl (0.44-1.00); GLUCOSE 103 mg/dl (70-220); POTASSIUM 3.7 mmol/L (3.5-5.1); SODIUM 158 mmol/L (135-144)
[2019-04-25 07:41] LABS: BAND NEUTROPHILS #M 3.7 10^3/ul (0.0-0.6); BAND NEUTROPHILS % (M) 49 % (0-4); GIANT THROMBO% (M) 2 % (0-0); LYMPHOCYTES #M 1.2 10^3/ul (0.8-2.9); LYMPHOCYTES % (M) 16 % (15-51); METAMYELOCYTES %M 1 % (0-0); MONOCYTES % (M) 1 % (0-11); PLATELET ESTIMATE NORMAL; POIKILOCYTOSIS 1+ (0-0); POLYCHROMASIA 1+ (0-0); REACTIVE LYMPHOCYTES #M 0.1 10^3/ul (0.0-0.0); REACTIVE LYMPHOCYTES% (M) 2 % (0-0); SEG NEUT #M 2.7 10^3/ul (1.6-7.5); SEGMENTED NEUTROPHILS (M) % 31 % (39-77); SMUDGE%M 10 % (0-0); TOXIC GRANULATION 2+ (0-0)
[2019-04-25] MEDS: CEFEPIME 1GM/50 ML (PMX) 50 ML IVPB ×2 (08:34→22:55)
[2019-04-25] MEDS: VANCOMYCIN 750 MG (PMX) 250 ML IVPB (14:54)
[2019-04-25] MEDS: ACETAMINOPHEN 650 MG SUPP PR (19:47)
[2019-04-25] MEDS: FAMOTIDINE 20 MG INJ IV (22:55)
[2019-04-25] MEDS: BALSAM PERU/CASTOR OIL 60 GM TUBE TOP (22:55)
[2019-04-26] MEDS: AZITHROMYCIN 500MG/NS (PMX) 250 ML IV (01:53)
[2019-04-26] MEDS: LEVALBUTEROL (NEB) 0.63 MG/3 ML AMP HHN ×4 (02:02→20:58)
[2019-04-26] MEDS: DEXTROSE 5% 1,000 ML IV ×3 (02:59→22:18)
[2019-04-26 06:29] LABS: ABNORMAL IP MESSAGE 1; HEMATOCRIT 38.7 % (37.0-47.0); HEMOGLOBIN 11.9 g/dl (12.0-16.0); MEAN CORPUSCULAR HEMOGLOBIN 30.9 pg (29.0-33.0); MEAN CORPUSCULAR HGB CONC 30.7 g/dl (32.0-37.0); MEAN CORPUSCULAR VOLUME 100.5 fl (82.0-101.0); MEAN PLATELET VOLUME 11.1 fl (7.4-10.4); PLATELET COUNT 216 10^3/UL (140-415); RED BLOOD COUNT 3.85 10^6/ul (4.20-5.40); RED CELL DISTRIBUTION WIDTH 15.9 % (11.5-14.5)
[2019-04-26 06:29] LABS: WHITE BLOOD COUNT 9.4 10^3/ul (4.8-10.8)
[2019-04-26 06:33] LABS: ADD MAN DIFF? YES; POSITIVE DIFF @See below
[2019-04-26 07:07] LABS: ANION GAP 4 (5-13); BLOOD UREA NITROGEN 36 mg/dl (7-20); CALCIUM 8.3 mg/dl (8.4-10.2); CARBON DIOXIDE 24 mmol/L (21-31); CHLORIDE 128 mmol/L (97-110); CREATININE 0.75 mg/dl (0.44-1.00); GLUCOSE 88 mg/dl (70-220); MAGNESIUM 2.5 mg/dl (1.7-2.5); PHOSPHORUS 3.3 mg/dl (2.5-4.9); POTASSIUM 3.7 mmol/L (3.5-5.1); SODIUM 156 mmol/L (135-144)
[2019-04-26 08:38] LABS: BAND NEUTROPHILS #M 3.3 10^3/ul (0.0-0.6); BAND NEUTROPHILS % (M) 36 % (0-4); ERYTHROBLAST% (NRBC) (M) 1 % (0-0); LYMPHOCYTES #M 0.6 10^3/ul (0.8-2.9); LYMPHOCYTES % (M) 7 % (15-51); MONOCYTES % (M) 1 % (0-11); PLATELET ESTIMATE NORMAL; POLYCHROMASIA 2+ (0-0); SEG NEUT #M 5.6 10^3/ul (1.6-7.5); SEGMENTED NEUTROPHILS (M) % 56 % (39-77); SMUDGE%M 4 % (0-0)
[2019-04-26] MEDS ORDERED: VANCOMYCIN 1 GM 250 ML IVPB (09:00)
[2019-04-26] MEDS: CEFEPIME 1GM/50 ML (PMX) 50 ML IVPB ×2 (09:06→22:16)
[2019-04-26] MEDS: BALSAM PERU/CASTOR OIL 60 GM TUBE TOP ×2 (09:11→22:16)
[2019-04-26] MEDS: METOLAZONE 2.5 MG TAB PO (09:11)
[2019-04-26 12:32] LABS: CREATININE, RANDOM URINE 65 mg/dL (20-275); MICROALBUMIN 8.9 mg/dL; MICROALBUMIN/CREATININE RATIO 137 (<30)
[2019-04-26] MEDS: VANCOMYCIN 750 MG (PMX) 250 ML IVPB (13:28)
[2019-04-26] MEDS: FAMOTIDINE 20 MG INJ IV (22:18)
[2019-04-27] MEDS: AZITHROMYCIN 500MG/NS (PMX) 250 ML IV (01:26)
[2019-04-27] MEDS: LEVALBUTEROL (NEB) 0.63 MG/3 ML AMP HHN ×4 (01:55→19:30)
[2019-04-27 06:45] LABS: ANION GAP 4 (5-13); BLOOD UREA NITROGEN 25 mg/dl (7-20); CALCIUM 7.8 mg/dl (8.4-10.2); CARBON DIOXIDE 21 mmol/L (21-31); CHLORIDE 124 mmol/L (97-110); CREATININE 0.61 mg/dl (0.44-1.00); GLUCOSE 105 mg/dl (70-220); MAGNESIUM 2.2 mg/dl (1.7-2.5); PHOSPHORUS 3.3 mg/dl (2.5-4.9); SODIUM 149 mmol/L (135-144)
[2019-04-27] MEDS: DEXTROSE 5% 1,000 ML IV (08:43)
[2019-04-27] MEDS: CEFEPIME 1GM/50 ML (PMX) 50 ML IVPB ×2 (08:44→22:10)
[2019-04-27] MEDS: BALSAM PERU/CASTOR OIL 60 GM TUBE TOP ×2 (08:44→22:10)
[2019-04-27] MEDS ORDERED: POTASSIUM CHLORIDE 50 ML IVPB (12:00)
[2019-04-27] MEDS: POTASSIUM CHLORIDE 20 MEQ/SW 100 ML IVPB ×2 (12:25→15:35)
[2019-04-27 14:02] LABS: VANCOMYCIN,TROUGH 10.3 ug/ml (10.0-20.0)
[2019-04-27] MEDS: VANCOMYCIN 750 MG (PMX) 250 ML IVPB (14:40)
[2019-04-27] MEDS: FAMOTIDINE 20 MG INJ IV (22:10)
[2019-04-27] MEDS: ACETAMINOPHEN 650 MG SUPP PR (22:10)
[2019-04-28] MEDS: LEVALBUTEROL (NEB) 0.63 MG/3 ML AMP HHN ×4 (01:53→20:44)
[2019-04-28] MEDS: BALSAM PERU/CASTOR OIL 60 GM TUBE TOP ×2 (09:17→20:28)
[2019-04-28] MEDS: CEFEPIME 1GM/50 ML (PMX) 50 ML IVPB ×2 (10:06→20:28)
[2019-04-28 13:35] LABS: ANION GAP 7 (5-13); BLOOD UREA NITROGEN 29 mg/dl (7-20); CALCIUM 8.1 mg/dl (8.4-10.2); CARBON DIOXIDE 20 mmol/L (21-31); CHLORIDE 124 mmol/L (97-110); CREATININE 0.62 mg/dl (0.44-1.00); GLUCOSE 73 mg/dl (70-220); SODIUM 151 mmol/L (135-144)
[2019-04-28] MEDS: VANCOMYCIN 1 GM 250 ML IVPB (13:37)
[2019-04-28] MEDS: DEXTROSE 5% 1,000 ML IV (13:37)
[2019-04-28] MEDS: FAMOTIDINE 20 MG INJ IV (20:28)
[2019-04-29] MEDS: DEXTROSE 5% 1,000 ML IV ×3 (00:44→18:09)
[2019-04-29] MEDS: ACETAMINOPHEN 650 MG SUPP PR ×2 (00:55→23:53)
[2019-04-29] MEDS: LEVALBUTEROL (NEB) 0.63 MG/3 ML AMP HHN ×4 (01:44→20:42)
[2019-04-29 06:48] LABS: HEMATOCRIT 36.3 % (37.0-47.0); HEMOGLOBIN 11.5 g/dl (12.0-16.0); MEAN CORPUSCULAR HEMOGLOBIN 31.3 pg (29.0-33.0); MEAN CORPUSCULAR HGB CONC 31.7 g/dl (32.0-37.0); MEAN CORPUSCULAR VOLUME 98.6 fl (82.0-101.0); MEAN PLATELET VOLUME 11.1 fl (7.4-10.4); PLATELET COUNT 168 10^3/UL (140-415); RED BLOOD COUNT 3.68 10^6/ul (4.20-5.40); RED CELL DISTRIBUTION WIDTH 15.5 % (11.5-14.5)
[2019-04-29 06:48] LABS: WHITE BLOOD COUNT 4.9 10^3/ul (4.8-10.8)
[2019-04-29 06:49] LABS: ADD MAN DIFF? YES; POSITIVE DIFF @See below
[2019-04-29 07:16] LABS: ANION GAP 5 (5-13); BLOOD UREA NITROGEN 25 mg/dl (7-20); CALCIUM 7.8 mg/dl (8.4-10.2); CARBON DIOXIDE 21 mmol/L (21-31); CHLORIDE 120 mmol/L (97-110); CREATININE 0.57 mg/dl (0.44-1.00); GLUCOSE 129 mg/dl (70-220); MAGNESIUM 1.9 mg/dl (1.7-2.5); PHOSPHORUS 3.1 mg/dl (2.5-4.9); POTASSIUM 3.1 mmol/L (3.5-5.1); SODIUM 146 mmol/L (135-144)
[2019-04-29 08:01] LABS: BAND NEUTROPHILS #M 1.7 10^3/ul (0.0-0.6); BAND NEUTROPHILS % (M) 36 % (0-4); BURR CELLS 1+ (0-0); EOSINOPHILS % (M) 1 % (0-7); GIANT THROMBO% (M) 1 % (0-0); LYMPHOCYTES #M 0.3 10^3/ul (0.8-2.9); LYMPHOCYTES % (M) 8 % (15-51); METAMYELOCYTES %M 1 % (0-0); MYELOCYTES % (M) 1 % (0-0); PLATELET ESTIMATE NORMAL; POIKILOCYTOSIS 1+ (0-0); SEG NEUT #M 2.7 10^3/ul (1.6-7.5); SEGMENTED NEUTROPHILS (M) % 53 % (39-77); SMUDGE%M 9 % (0-0); TOXIC GRANULATION 1+ (0-0); TOXIC VACUOLATION 1+ (0-0)
[2019-04-29] MEDS: CEFEPIME 1GM/50 ML (PMX) 50 ML IVPB ×2 (09:39→20:59)
[2019-04-29] MEDS: POTASSIUM CHLORIDE 100 ML IVPB ×2 (09:39→11:45)
[2019-04-29] MEDS: BALSAM PERU/CASTOR OIL 60 GM TUBE TOP ×2 (09:40→21:13)
[2019-04-29] MEDS: VANCOMYCIN 1 GM 250 ML IVPB (15:26)
[2019-04-29] MEDS: FAMOTIDINE 20 MG INJ IV (21:01)
[2019-04-30] MEDS: LEVALBUTEROL (NEB) 0.63 MG/3 ML AMP HHN ×4 (00:48→19:28)
[2019-04-30] MEDS: DEXTROSE 5% 1,000 ML IV ×2 (05:13→20:44)
[2019-04-30 07:09] LABS: HEMATOCRIT 38.3 % (37.0-47.0); HEMOGLOBIN 12.2 g/dl (12.0-16.0); MEAN CORPUSCULAR HEMOGLOBIN 31.3 pg (29.0-33.0); MEAN CORPUSCULAR HGB CONC 31.9 g/dl (32.0-37.0); MEAN CORPUSCULAR VOLUME 98.2 fl (82.0-101.0); MEAN PLATELET VOLUME 11.3 fl (7.4-10.4); PLATELET COUNT 161 10^3/UL (140-415); RED CELL DISTRIBUTION WIDTH 15.5 % (11.5-14.5)
[2019-04-30 07:09] LABS: WHITE BLOOD COUNT 4.1 10^3/ul (4.8-10.8)
[2019-04-30 07:12] LABS: ADD MAN DIFF? YES; POSITIVE DIFF @See below
[2019-04-30 07:32] LABS: ANION GAP 5 (5-13); BLOOD UREA NITROGEN 22 mg/dl (7-20); CALCIUM 7.9 mg/dl (8.4-10.2); CARBON DIOXIDE 19 mmol/L (21-31); CHLORIDE 118 mmol/L (97-110); CREATININE 0.55 mg/dl (0.44-1.00); GLUCOSE 96 mg/dl (70-220); MAGNESIUM 1.8 mg/dl (1.7-2.5); PHOSPHORUS 2.9 mg/dl (2.5-4.9); POTASSIUM 3.7 mmol/L (3.5-5.1); SODIUM 142 mmol/L (135-144)
[2019-04-30] MEDS: FUROSEMIDE 20 MG INJ IV (08:22)
[2019-04-30] MEDS: CEFEPIME 1GM/50 ML (PMX) 50 ML IVPB ×2 (08:22→20:53)
[2019-04-30] MEDS: BALSAM PERU/CASTOR OIL 60 GM TUBE TOP ×2 (08:23→20:53)
[2019-04-30 09:46] LABS: ANISOCYTOSIS 1+ (0-0); BAND NEUTROPHILS #M 1.1 10^3/ul (0.0-0.6); BAND NEUTROPHILS % (M) 27 % (0-4); BURR CELLS 2+ (0-0); LYMPHOCYTES #M 0.7 10^3/ul (0.8-2.9); LYMPHOCYTES % (M) 18 % (15-51); MYELOCYTES % (M) 1 % (0-0); PLATELET ESTIMATE NORMAL; POIKILOCYTOSIS 2+ (0-0); SEG NEUT #M 2.3 10^3/ul (1.6-7.5); SEGMENTED NEUTROPHILS (M) % 54 % (39-77); SMUDGE%M 13 % (0-0)
[2019-04-30] MEDS: POTASSIUM CHLORIDE 100 ML IVPB (10:16)
[2019-04-30] MEDS: ACETAMINOPHEN 650 MG SUPP PR (18:48)
[2019-04-30] MEDS: FAMOTIDINE 20 MG INJ IV (20:53)
[2019-05-01] MEDS: LEVALBUTEROL (NEB) 0.63 MG/3 ML AMP HHN ×4 (02:09→20:00)
[2019-05-01] MEDS: DEXTROSE 5% 1,000 ML IV (02:45)
[2019-05-01 06:25] LABS: WHITE BLOOD COUNT 2.7 10^3/ul (4.8-10.8)
[2019-05-01 06:25] LABS: ABNORMAL IP MESSAGE 1; HEMATOCRIT 39.4 % (37.0-47.0); HEMOGLOBIN 12.5 g/dl (12.0-16.0); MEAN CORPUSCULAR HEMOGLOBIN 30.8 pg (29.0-33.0); MEAN CORPUSCULAR HGB CONC 31.7 g/dl (32.0-37.0); MEAN PLATELET VOLUME 11.3 fl (7.4-10.4); PLATELET COUNT 162 10^3/UL (140-415); RED BLOOD COUNT 4.06 10^6/ul (4.20-5.40); RED CELL DISTRIBUTION WIDTH 15.4 % (11.5-14.5)
[2019-05-01 06:26] LABS: ADD MAN DIFF? YES; POSITIVE DIFF @See below
[2019-05-01 06:55] LABS: ANION GAP 7 (5-13); BLOOD UREA NITROGEN 22 mg/dl (7-20); CALCIUM 7.9 mg/dl (8.4-10.2); CARBON DIOXIDE 20 mmol/L (21-31); CHLORIDE 113 mmol/L (97-110); CREATININE 0.53 mg/dl (0.44-1.00); GLUCOSE 88 mg/dl (70-220); MAGNESIUM 1.7 mg/dl (1.7-2.5); PHOSPHORUS 3.3 mg/dl (2.5-4.9); POTASSIUM 3.7 mmol/L (3.5-5.1); SODIUM 140 mmol/L (135-144)
[2019-05-01 08:00] LABS: BAND NEUTROPHILS % (M) 39 % (0-4); BURR CELLS 1+ (0-0); GIANT THROMBO% (M) 2 % (0-0); LYMPHOCYTES #M 0.3 10^3/ul (0.8-2.9); LYMPHOCYTES % (M) 14 % (15-51); OVALOCYTES 1+ (0-0); PLATELET ESTIMATE NORMAL; POLYCHROMASIA 1+ (0-0); SEG NEUT #M 1.3 10^3/ul (1.6-7.5); SEGMENTED NEUTROPHILS (M) % 47 % (39-77); SMUDGE%M 8 % (0-0)
[2019-05-01] MEDS: FUROSEMIDE 40 MG INJ IV (08:58)
[2019-05-01] MEDS: POTASSIUM CHLORIDE 100 ML IVPB (08:58)
[2019-05-01] MEDS: BALSAM PERU/CASTOR OIL 60 GM TUBE TOP ×2 (09:03→21:04)
[2019-05-01] MEDS: CEFEPIME 1GM/50 ML (PMX) 50 ML IVPB ×2 (10:56→21:03)
[2019-05-01] MEDS: FAMOTIDINE 20 MG INJ IV (21:03)
[2019-05-02] MEDS: LEVALBUTEROL (NEB) 0.63 MG/3 ML AMP HHN ×4 (02:00→19:57)
[2019-05-02 06:41] LABS: ADD MAN DIFF? NO
[2019-05-02 06:50] LABS: WHITE BLOOD COUNT 2.8 10^3/ul (4.8-10.8)
[2019-05-02 06:50] LABS: BASOPHILS % 0.4 % (0.0-2.0); HEMATOCRIT 40.6 % (37.0-47.0); HEMOGLOBIN 13.3 g/dl (12.0-16.0); LYMPHOCYTES # 0.7 10^3/ul (0.8-2.9); LYMPHOCYTES % 25.6 % (15.0-51.0); MEAN CORPUSCULAR HGB CONC 32.8 g/dl (32.0-37.0); MEAN CORPUSCULAR VOLUME 94.6 fl (82.0-101.0); MEAN PLATELET VOLUME 11.7 fl (7.4-10.4); MONOCYTE # 0.1 10^3/ul (0.3-0.9); MONOCYTES % 2.8 % (0.0-11.0); NEUTROPHILS % 70.1 % (39.0-77.0); PLATELET COUNT 166 10^3/UL (140-415); RED BLOOD COUNT 4.29 10^6/ul (4.20-5.40)
[2019-05-02 07:27] LABS: ANION GAP 5 (5-13); BLOOD UREA NITROGEN 19 mg/dl (7-20); CALCIUM 7.9 mg/dl (8.4-10.2); CARBON DIOXIDE 22 mmol/L (21-31); CHLORIDE 110 mmol/L (97-110); CREATININE 0.57 mg/dl (0.44-1.00); GLUCOSE 94 mg/dl (70-220); MAGNESIUM 1.5 mg/dl (1.7-2.5); PHOSPHORUS 3.2 mg/dl (2.5-4.9); POTASSIUM 3.3 mmol/L (3.5-5.1); SODIUM 137 mmol/L (135-144)
[2019-05-02] MEDS: BALSAM PERU/CASTOR OIL 60 GM TUBE TOP ×2 (09:35→20:31)
[2019-05-02] MEDS: DEXTROSE 5%-0.45% NACL 1,000 ML IV (11:09)
[2019-05-02] MEDS: CEFEPIME 1GM/50 ML (PMX) 50 ML IVPB (11:25)
[2019-05-02] MEDS: FUROSEMIDE 40 MG INJ IV (11:37)
[2019-05-02] MEDS: MAGNESIUM SULFATE 2 GM/50 ML 50 ML IVPB (12:08)
[2019-05-02] MEDS: POTASSIUM CHLORIDE 100 ML IVPB ×3 (14:27→17:18)
[2019-05-02] MEDS ORDERED: POTASSIUM CHLORIDE 100 ML IVPB (14:30)
[2019-05-02] MEDS: MEROPENEM 1 GM/50ML(PMX) 50 ML IVPB (20:31)
[2019-05-02] MEDS: FAMOTIDINE 20 MG INJ IV (20:31)
[2019-05-03] MEDS: LEVALBUTEROL (NEB) 0.63 MG/3 ML AMP HHN ×4 (01:30→20:50)
[2019-05-03] MEDS: DEXTROSE 5%-0.45% NACL 1,000 ML IV ×2 (06:00→19:59)
[2019-05-03 08:50] LABS: ANION GAP 6 (5-13); BLOOD UREA NITROGEN 22 mg/dl (7-20); CALCIUM 8.1 mg/dl (8.4-10.2); CARBON DIOXIDE 23 mmol/L (21-31); CHLORIDE 111 mmol/L (97-110); CREATININE 0.58 mg/dl (0.44-1.00); GLUCOSE 101 mg/dl (70-220); PHOSPHORUS 3.1 mg/dl (2.5-4.9); POTASSIUM 4.3 mmol/L (3.5-5.1); SODIUM 140 mmol/L (135-144)
[2019-05-03] MEDS: MEROPENEM 1 GM/50ML(PMX) 50 ML IVPB ×2 (09:06→19:59)
[2019-05-03] MEDS: BALSAM PERU/CASTOR OIL 60 GM TUBE TOP ×2 (09:07→20:00)
[2019-05-03] MEDS: FAMOTIDINE 20 MG INJ IV (19:59)
[2019-05-04 00:25] LABS: AADO2 Arterial 584.3 mmHg (7.0-24.0); Allen Test ACCEPTAB; Arterial Base Excess -4.1 mmol/L (-3.0-3); Arterial COHb 0.3 % (0.0-3.0); Arterial Fraction of Oxyhgb 96.4 % (93.0-99.0); Arterial MetHb 0.3 % (0.0-1.5); Arterial pCO2 33.5 mmhg (35-45); MODE HFNC; Site Right Radial
[2019-05-04] MEDS: LEVALBUTEROL (NEB) 0.63 MG/3 ML AMP HHN ×4 (01:43→19:46)
[2019-05-04] MEDS: DEXTROSE 5%-0.45% NACL 1,000 ML IV ×2 (02:00→16:25)
[2019-05-04 08:35] LABS: HEMATOCRIT 38.3 % (37.0-47.0); HEMOGLOBIN 12.4 g/dl (12.0-16.0); MEAN CORPUSCULAR HGB CONC 32.4 g/dl (32.0-37.0); MEAN CORPUSCULAR VOLUME 95.8 fl (82.0-101.0); MEAN PLATELET VOLUME 12.1 fl (7.4-10.4); PLATELET COUNT 140 10^3/UL (140-415); RED CELL DISTRIBUTION WIDTH 15.2 % (11.5-14.5)
[2019-05-04 08:35] LABS: WHITE BLOOD COUNT 3.2 10^3/ul (4.8-10.8)
[2019-05-04] MEDS: MEROPENEM 1 GM/50ML(PMX) 50 ML IVPB ×2 (08:41→20:10)
[2019-05-04] MEDS: BALSAM PERU/CASTOR OIL 60 GM TUBE TOP ×2 (08:45→20:11)
[2019-05-04 08:56] LABS: POSITIVE DIFF @See below
[2019-05-04 08:57] LABS: ADD MAN DIFF? YES
[2019-05-04 09:10] LABS: ANION GAP 7 (5-13); BLOOD UREA NITROGEN 20 mg/dl (7-20); CALCIUM 7.7 mg/dl (8.4-10.2); CARBON DIOXIDE 20 mmol/L (21-31); CHLORIDE 113 mmol/L (97-110); CREATININE 0.37 mg/dl (0.44-1.00); GLUCOSE 93 mg/dl (70-220); MAGNESIUM 1.8 mg/dl (1.7-2.5); PHOSPHORUS 2.4 mg/dl (2.5-4.9); SODIUM 140 mmol/L (135-144)
[2019-05-04 12:54] LABS: ANISOCYTOSIS 1+ (0-0); BAND NEUTROPHILS #M 0.7 10^3/ul (0.0-0.6); BAND NEUTROPHILS % (M) 24 % (0-4); BURR CELLS 1+ (0-0); ERYTHROBLAST% (NRBC) (M) 1 % (0-0); GIANT THROMBO% (M) 4 % (0-0); LYMPHOCYTES #M 0.1 10^3/ul (0.8-2.9); LYMPHOCYTES % (M) 6 % (15-51); MONOCYTES % (M) 3 % (0-11); PLATELET ESTIMATE NORMAL; POIKILOCYTOSIS 2+ (0-0); SEG NEUT #M 2.2 10^3/ul (1.6-7.5); SEGMENTED NEUTROPHILS (M) % 67 % (39-77); SMUDGE%M 48 % (0-0); TARGET CELLS 1+ (0-0)
[2019-05-04] MEDS: FAMOTIDINE 20 MG INJ IV (20:10)
[2019-05-05] MEDS: LEVALBUTEROL (NEB) 0.63 MG/3 ML AMP HHN ×4 (01:49→21:22)
[2019-05-05 06:49] LABS: HEMATOCRIT 37.2 % (37.0-47.0); HEMOGLOBIN 11.9 g/dl (12.0-16.0); MEAN CORPUSCULAR HEMOGLOBIN 30.4 pg (29.0-33.0); MEAN CORPUSCULAR VOLUME 95.1 fl (82.0-101.0); MEAN PLATELET VOLUME 12.2 fl (7.4-10.4); PLATELET COUNT 139 10^3/UL (140-415); RED BLOOD COUNT 3.91 10^6/ul (4.20-5.40); RED CELL DISTRIBUTION WIDTH 15.3 % (11.5-14.5)
[2019-05-05 06:49] LABS: WHITE BLOOD COUNT 4.4 10^3/ul (4.8-10.8)
[2019-05-05 06:52] LABS: ADD MAN DIFF? YES; POSITIVE DIFF @See below
[2019-05-05 07:57] LABS: MAGNESIUM 1.7 mg/dl (1.7-2.5)
[2019-05-05 07:57] LABS: PHOSPHORUS 2.1 mg/dl (2.5-4.9)
[2019-05-05 07:58] LABS: ANION GAP 4 (5-13); BLOOD UREA NITROGEN 17 mg/dl (7-20); CALCIUM 7.9 mg/dl (8.4-10.2); CARBON DIOXIDE 22 mmol/L (21-31); CHLORIDE 113 mmol/L (97-110); CREATININE 0.41 mg/dl (0.44-1.00); GLUCOSE 102 mg/dl (70-220); POTASSIUM 3.7 mmol/L (3.5-5.1); SODIUM 139 mmol/L (135-144)
[2019-05-05] MEDS: BALSAM PERU/CASTOR OIL 60 GM TUBE TOP ×2 (08:19→20:25)
[2019-05-05] MEDS: MEROPENEM 1 GM/50ML(PMX) 50 ML IVPB ×2 (08:19→20:25)
[2019-05-05] MEDS: FUROSEMIDE 20 MG INJ IV (08:20)
[2019-05-05] MEDS: POTASSIUM PHOSPHATE 20 MEQ in SOD CHLORIDE 0.9% 250 ML IVPB (09:32)
[2019-05-05 10:16] LABS: ANISOCYTOSIS 1+ (0-0); BAND NEUTROPHILS #M 1.2 10^3/ul (0.0-0.6); BAND NEUTROPHILS % (M) 29 % (0-4); BURR CELLS 1+ (0-0); GIANT THROMBO% (M) 1 % (0-0); LYMPHOCYTES #M 0.3 10^3/ul (0.8-2.9); LYMPHOCYTES % (M) 8 % (15-51); METAMYELOCYTES %M 1 % (0-0); MONOCYTES % (M) 1 % (0-11); PLATELET ESTIMATE NORMAL; POIKILOCYTOSIS 1+ (0-0); POLYCHROMASIA 2+ (0-0); REACTIVE LYMPHOCYTES #M 0.1 10^3/ul (0.0-0.0); REACTIVE LYMPHOCYTES% (M) 4 % (0-0); SEG NEUT #M 2.6 10^3/ul (1.6-7.5); SEGMENTED NEUTROPHILS (M) % 57 % (39-77); SMUDGE%M 14 % (0-0)
[2019-05-05] MEDS: DEXTROSE 5%-0.45% NACL 1,000 ML IV (11:18)
[2019-05-05] MEDS: APIXABAN 5 MG TABLET PO ×2 (12:00→20:17)
[2019-05-05] MEDS: FAMOTIDINE 20 MG INJ IV (20:25)
[2019-05-06] MEDS: LEVALBUTEROL (NEB) 0.63 MG/3 ML AMP HHN ×4 (01:26→22:30)
[2019-05-06] MEDS: DEXTROSE 5%-0.45% NACL 1,000 ML IV ×2 (07:00→18:08)
[2019-05-06 07:55] LABS: HEMATOCRIT 38.3 % (37.0-47.0); HEMOGLOBIN 12.6 g/dl (12.0-16.0); MEAN CORPUSCULAR HEMOGLOBIN 31.3 pg (29.0-33.0); MEAN CORPUSCULAR HGB CONC 32.9 g/dl (32.0-37.0); MEAN PLATELET VOLUME 12.1 fl (7.4-10.4); PLATELET COUNT 147 10^3/UL (140-415); RED BLOOD COUNT 4.03 10^6/ul (4.20-5.40); RED CELL DISTRIBUTION WIDTH 14.8 % (11.5-14.5)
[2019-05-06 07:55] LABS: WHITE BLOOD COUNT 4.4 10^3/ul (4.8-10.8)
[2019-05-06 08:06] LABS: ADD MAN DIFF? YES; POSITIVE DIFF @See below
[2019-05-06 08:09] LABS: ANION GAP 7 (5-13); BLOOD UREA NITROGEN 17 mg/dl (7-20); CALCIUM 7.8 mg/dl (8.4-10.2); CARBON DIOXIDE 21 mmol/L (21-31); CHLORIDE 112 mmol/L (97-110); GLUCOSE 107 mg/dl (70-220); MAGNESIUM 1.7 mg/dl (1.7-2.5); PHOSPHORUS 2.7 mg/dl (2.5-4.9); POTASSIUM 3.8 mmol/L (3.5-5.1); SODIUM 140 mmol/L (135-144)
[2019-05-06] MEDS: MEROPENEM 1 GM/50ML(PMX) 50 ML IVPB ×2 (08:21→20:32)
[2019-05-06] MEDS: BALSAM PERU/CASTOR OIL 60 GM TUBE TOP ×2 (08:21→21:00)
[2019-05-06] MEDS: FUROSEMIDE 20 MG INJ IV (08:21)
[2019-05-06] MEDS: APIXABAN 5 MG TABLET PO ×2 (08:22→20:33)
[2019-05-06] MEDS: POTASSIUM CHLORIDE 100 ML IVPB (09:04)
[2019-05-06 10:44] LABS: ANISOCYTOSIS 1+ (0-0); BAND NEUTROPHILS #M 1.3 10^3/ul (0.0-0.6); BAND NEUTROPHILS % (M) 30 % (0-4); EOSINOPHILS % (M) 1 % (0-7); GIANT THROMBO% (M) 6 % (0-0); LYMPHOCYTES #M 0.2 10^3/ul (0.8-2.9); LYMPHOCYTES % (M) 6 % (15-51); MONOCYTE #M 0.2 10^3/ul (0.3-0.9); MONOCYTES % (M) 6 % (0-11); PLATELET ESTIMATE NORMAL; POIKILOCYTOSIS 1+ (0-0); POLYCHROMASIA 2+ (0-0); SEG NEUT #M 2.6 10^3/ul (1.6-7.5); SEGMENTED NEUTROPHILS (M) % 57 % (39-77); SMUDGE%M 13 % (0-0)
[2019-05-06] MEDS: FAMOTIDINE 20 MG INJ IV (20:33)
[2019-05-07] MEDS: LEVALBUTEROL (NEB) 0.63 MG/3 ML AMP HHN ×4 (01:41→19:24)
[2019-05-07 06:43] LABS: HEMATOCRIT 38.3 % (37.0-47.0); HEMOGLOBIN 12.3 g/dl (12.0-16.0); MEAN CORPUSCULAR HEMOGLOBIN 30.8 pg (29.0-33.0); MEAN CORPUSCULAR HGB CONC 32.1 g/dl (32.0-37.0); MEAN PLATELET VOLUME 11.7 fl (7.4-10.4); PLATELET COUNT 148 10^3/UL (140-415); RED BLOOD COUNT 3.99 10^6/ul (4.20-5.40); RED CELL DISTRIBUTION WIDTH 14.7 % (11.5-14.5)
[2019-05-07 06:44] LABS: ADD MAN DIFF? YES; POSITIVE DIFF @See below
[2019-05-07 07:01] LABS: ANION GAP 3 (5-13); BLOOD UREA NITROGEN 17 mg/dl (7-20); CALCIUM 8.1 mg/dl (8.4-10.2); CARBON DIOXIDE 25 mmol/L (21-31); CHLORIDE 111 mmol/L (97-110); CREATININE 0.36 mg/dl (0.44-1.00); GLUCOSE 108 mg/dl (70-220); MAGNESIUM 1.5 mg/dl (1.7-2.5); PHOSPHORUS 2.2 mg/dl (2.5-4.9); SODIUM 139 mmol/L (135-144)
[2019-05-07] MEDS: APIXABAN 5 MG TABLET PO ×2 (08:13→20:53)
[2019-05-07] MEDS: MEROPENEM 1 GM/50ML(PMX) 50 ML IVPB ×2 (08:13→21:22)
[2019-05-07] MEDS: BALSAM PERU/CASTOR OIL 60 GM TUBE TOP (08:13)
[2019-05-07] MEDS: MAGNESIUM SULFATE 2 GM/50 ML 50 ML IVPB (08:52)
[2019-05-07 09:44] LABS: BAND NEUTROPHILS #M 0.9 10^3/ul (0.0-0.6); BAND NEUTROPHILS % (M) 16 % (0-4); BASOPHILS % (M) 1 % (0-2); GIANT THROMBO% (M) 5 % (0-0); LYMPHOCYTES #M 0.4 10^3/ul (0.8-2.9); LYMPHOCYTES % (M) 8 % (15-51); MONOCYTE #M 0.6 10^3/ul (0.3-0.9); MONOCYTES % (M) 10 % (0-11); PLATELET ESTIMATE NORMAL; POIKILOCYTOSIS 3+ (0-0); SEGMENTED NEUTROPHILS (M) % 65 % (39-77); SMUDGE%M 12 % (0-0)
[2019-05-07] MEDS: POTASSIUM PHOSPHATE 30 MM in SOD CHLORIDE 0.9% 250 ML IVPB (11:30)
[2019-05-07] MEDS ORDERED: *CONTINUE SAME TPN IV (13:30)
[2019-05-07] MEDS: LIDOCAINE 1% (MPF) 5 ML VIAL SC (13:30)
[2019-05-07] MEDS: DEXTROSE 5%-0.45% NACL 1,000 ML IV (21:23)
[2019-05-07] MEDS: FAMOTIDINE 20 MG INJ IV (21:23)
[2019-05-08] MEDS: LEVALBUTEROL (NEB) 0.63 MG/3 ML AMP HHN ×4 (01:24→19:48)
[2019-05-08 07:10] LABS: HEMATOCRIT 33.8 % (37.0-47.0); HEMOGLOBIN 10.7 g/dl (12.0-16.0); MEAN CORPUSCULAR HEMOGLOBIN 30.1 pg (29.0-33.0); MEAN CORPUSCULAR HGB CONC 31.7 g/dl (32.0-37.0); MEAN CORPUSCULAR VOLUME 95.2 fl (82.0-101.0); MEAN PLATELET VOLUME 11.2 fl (7.4-10.4); PLATELET COUNT 117 10^3/UL (140-415); RED BLOOD COUNT 3.55 10^6/ul (4.20-5.40); RED CELL DISTRIBUTION WIDTH 14.6 % (11.5-14.5)
[2019-05-08 07:10] LABS: WHITE BLOOD COUNT 4.8 10^3/ul (4.8-10.8)
[2019-05-08 07:15] LABS: POSITIVE DIFF @See below
[2019-05-08 07:16] LABS: ADD MAN DIFF? YES
[2019-05-08 07:58] LABS: ANION GAP 5 (5-13); BLOOD UREA NITROGEN 16 mg/dl (7-20); CALCIUM 7.6 mg/dl (8.4-10.2); CARBON DIOXIDE 25 mmol/L (21-31); CHLORIDE 112 mmol/L (97-110); CREATININE 0.34 mg/dl (0.44-1.00); GLUCOSE 102 mg/dl (70-220); MAGNESIUM 2.1 mg/dl (1.7-2.5); PHOSPHORUS 3.1 mg/dl (2.5-4.9); POTASSIUM 4.3 mmol/L (3.5-5.1); SODIUM 142 mmol/L (135-144)
[2019-05-08] MEDS: FUROSEMIDE 20 MG INJ IV (08:31)
[2019-05-08] MEDS: MEROPENEM 1 GM/50ML(PMX) 50 ML IVPB ×2 (08:32→20:43)
[2019-05-08] MEDS: BALSAM PERU/CASTOR OIL 60 GM TUBE TOP ×2 (08:32→20:44)
[2019-05-08] MEDS: APIXABAN 5 MG TABLET PO ×2 (08:33→20:44)
[2019-05-08 12:20] LABS: BAND NEUTROPHILS #M 1.1 10^3/ul (0.0-0.6); BAND NEUTROPHILS % (M) 23 % (0-4); ERYTHROBLAST% (NRBC) (M) 1 % (0-0); GIANT THROMBO% (M) 3 % (0-0); LYMPHOCYTES #M 0.2 10^3/ul (0.8-2.9); LYMPHOCYTES % (M) 6 % (15-51); MONOCYTE #M 0.3 10^3/ul (0.3-0.9); MONOCYTES % (M) 8 % (0-11); PLATELET ESTIMATE DECREASED; PROMYELOCYTES % (M) 1 % (0-0); REACTIVE LYMPHOCYTES% (M) 1 % (0-0); SEGMENTED NEUTROPHILS (M) % 61 % (39-77); SMUDGE%M 57 % (0-0)
[2019-05-08] MEDS: TPN 1,000 ML IV (16:43)
[2019-05-08] MEDS: FAMOTIDINE 20 MG INJ IV (20:43)
[2019-05-09] MEDS: LEVALBUTEROL (NEB) 0.63 MG/3 ML AMP HHN ×4 (01:24→20:23)
[2019-05-09 07:12] LABS: HEMATOCRIT 36.4 % (37.0-47.0); HEMOGLOBIN 11.4 g/dl (12.0-16.0); MEAN CORPUSCULAR HEMOGLOBIN 30.6 pg (29.0-33.0); MEAN CORPUSCULAR HGB CONC 31.3 g/dl (32.0-37.0); MEAN CORPUSCULAR VOLUME 97.6 fl (82.0-101.0); MEAN PLATELET VOLUME 12.2 fl (7.4-10.4); PLATELET COUNT 107 10^3/UL (140-415); RED BLOOD COUNT 3.73 10^6/ul (4.20-5.40); RED CELL DISTRIBUTION WIDTH 14.2 % (11.5-14.5)
[2019-05-09 07:12] LABS: WHITE BLOOD COUNT 5.4 10^3/ul (4.8-10.8)
[2019-05-09 07:15] LABS: ADD MAN DIFF? YES; POSITIVE DIFF @See below
[2019-05-09 07:16] LABS: TRIGLYCERIDES 185 mg/dl (0-149)
[2019-05-09 07:23] LABS: PREALBUMIN 4.1 mg/dl (17.6-36.0)
[2019-05-09 07:28] LABS: ANION GAP 2 (5-13); BLOOD UREA NITROGEN 24 mg/dl (7-20); CALCIUM 8.2 mg/dl (8.4-10.2); CARBON DIOXIDE 28 mmol/L (21-31); CHLORIDE 109 mmol/L (97-110); CREATININE 0.36 mg/dl (0.44-1.00); GLUCOSE 123 mg/dl (70-220); MAGNESIUM 1.7 mg/dl (1.7-2.5); PHOSPHORUS 2.1 mg/dl (2.5-4.9); POTASSIUM 3.7 mmol/L (3.5-5.1); SODIUM 139 mmol/L (135-144)
[2019-05-09] MEDS: TPN 1,000 ML IV (07:58)
[2019-05-09] MEDS: APIXABAN 5 MG TABLET PO ×2 (08:06→20:20)
[2019-05-09] MEDS: BALSAM PERU/CASTOR OIL 60 GM TUBE TOP ×2 (08:06→20:20)
[2019-05-09] MEDS: MEROPENEM 1 GM/50ML(PMX) 50 ML IVPB ×2 (08:06→20:19)
[2019-05-09 08:55] LABS: BAND NEUTROPHILS #M 0.9 10^3/ul (0.0-0.6); BAND NEUTROPHILS % (M) 18 % (0-4); LYMPHOCYTES #M 0.3 10^3/ul (0.8-2.9); LYMPHOCYTES % (M) 7 % (15-51); MONOCYTE #M 0.3 10^3/ul (0.3-0.9); MONOCYTES % (M) 6 % (0-11); PLATELET ESTIMATE DECREASED; POLYCHROMASIA 1+ (0-0); REACTIVE LYMPHOCYTES% (M) 1 % (0-0); SEG NEUT #M 3.7 10^3/ul (1.6-7.5); SEGMENTED NEUTROPHILS (M) % 68 % (39-77); SMUDGE%M 18 % (0-0)
[2019-05-09] MEDS: FUROSEMIDE 20 MG INJ IV (09:10)
[2019-05-09] MEDS: FAMOTIDINE 20 MG INJ IV (20:19)
[2019-05-10] MEDS: LEVALBUTEROL (NEB) 0.63 MG/3 ML AMP HHN ×4 (01:19→20:23)
[2019-05-10] MEDS: TPN 1,000 ML IV ×2 (03:25→18:00)
[2019-05-10] MEDS: ENOXAPARIN 60 MG/0.6 ML SYG SC (06:25)
[2019-05-10 08:27] LABS: ANION GAP 4 (5-13); BLOOD UREA NITROGEN 32 mg/dl (7-20); CALCIUM 8.2 mg/dl (8.4-10.2); CARBON DIOXIDE 28 mmol/L (21-31); CHLORIDE 105 mmol/L (97-110); CREATININE 0.34 mg/dl (0.44-1.00); GLUCOSE 87 mg/dl (70-220); MAGNESIUM 1.5 mg/dl (1.7-2.5); PHOSPHORUS 2.1 mg/dl (2.5-4.9); POTASSIUM 3.3 mmol/L (3.5-5.1); SODIUM 137 mmol/L (135-144)
[2019-05-10] MEDS: MEROPENEM 1 GM/50ML(PMX) 50 ML IVPB (08:43)
[2019-05-10] MEDS: FUROSEMIDE 20 MG INJ IV (08:44)
[2019-05-10] MEDS: BALSAM PERU/CASTOR OIL 60 GM TUBE TOP ×2 (08:45→20:53)
[2019-05-10] MEDS: POTASSIUM CHLORIDE 100 ML IVPB ×2 (11:35→13:35)
[2019-05-10] MEDS: MAGNESIUM SULFATE 2 GM/50 ML 50 ML IVPB (15:48)
[2019-05-10] MEDS: FAMOTIDINE 20 MG INJ IV (20:53)
[2019-05-11] MEDS: LEVALBUTEROL (NEB) 0.63 MG/3 ML AMP HHN ×4 (01:08→19:58)
[2019-05-11] MEDS: morphine 2 MG INJ IV ×2 (01:13→10:16)
[2019-05-11] MEDS: ENOXAPARIN 60 MG/0.6 ML SYG SC (05:58)
[2019-05-11 06:26] LABS: WHITE BLOOD COUNT 5.7 10^3/ul (4.8-10.8)
[2019-05-11 06:26] LABS: HEMATOCRIT 31.3 % (37.0-47.0); MEAN CORPUSCULAR HEMOGLOBIN 30.4 pg (29.0-33.0); MEAN CORPUSCULAR HGB CONC 31.9 g/dl (32.0-37.0); MEAN CORPUSCULAR VOLUME 95.1 fl (82.0-101.0); MEAN PLATELET VOLUME 11.9 fl (7.4-10.4); PLATELET COUNT 145 10^3/UL (140-415); RED BLOOD COUNT 3.29 10^6/ul (4.20-5.40); RED CELL DISTRIBUTION WIDTH 13.7 % (11.5-14.5)
[2019-05-11 06:28] LABS: ADD MAN DIFF? YES; POSITIVE DIFF @See below
[2019-05-11 06:52] LABS: ANION GAP 4 (5-13); BLOOD UREA NITROGEN 32 mg/dl (7-20); CALCIUM 8.2 mg/dl (8.4-10.2); CARBON DIOXIDE 28 mmol/L (21-31); CHLORIDE 104 mmol/L (97-110); CREATININE 0.35 mg/dl (0.44-1.00); GLUCOSE 85 mg/dl (70-220); MAGNESIUM 1.8 mg/dl (1.7-2.5); PHOSPHORUS 2.8 mg/dl (2.5-4.9); SODIUM 136 mmol/L (135-144)
[2019-05-11 08:16] LABS: BAND NEUTROPHILS #M 0.4 10^3/ul (0.0-0.6); BAND NEUTROPHILS % (M) 8 % (0-4); EOSINOPHILS % (M) 1 % (0-7); GIANT THROMBO% (M) 6 % (0-0); LYMPHOCYTES #M 0.7 10^3/ul (0.8-2.9); LYMPHOCYTES % (M) 14 % (15-51); METAMYELOCYTES %M 1 % (0-0); MONOCYTE #M 0.3 10^3/ul (0.3-0.9); MONOCYTES % (M) 7 % (0-11); MYELOCYTES % (M) 1 % (0-0); PLATELET ESTIMATE NORMAL; POLYCHROMASIA 1+ (0-0); SEG NEUT #M 3.9 10^3/ul (1.6-7.5); SEGMENTED NEUTROPHILS (M) % 68 % (39-77); SMUDGE%M 44 % (0-0)
[2019-05-11] MEDS: BALSAM PERU/CASTOR OIL 60 GM TUBE TOP ×2 (09:17→20:55)
[2019-05-11] MEDS: TPN 1,000 ML IV (10:15)
[2019-05-11] MEDS: SOD CHLORIDE 0.9% 250 ML IV (11:17)
[2019-05-11] MEDS: FAMOTIDINE 20 MG INJ IV (20:55)
[2019-05-11] MEDS: DILTIAZEM 25 MG INJ IV (21:00)
[2019-05-12] MEDS: LEVALBUTEROL (NEB) 0.63 MG/3 ML AMP HHN ×4 (01:29→19:33)
[2019-05-12] MEDS: TPN 1,000 ML IV ×2 (03:26→21:10)
[2019-05-12] MEDS: ENOXAPARIN 60 MG/0.6 ML SYG SC (05:54)
[2019-05-12 06:47] LABS: ANION GAP 3 (5-13); BLOOD UREA NITROGEN 29 mg/dl (7-20); CALCIUM 8.2 mg/dl (8.4-10.2); CARBON DIOXIDE 28 mmol/L (21-31); CHLORIDE 105 mmol/L (97-110); CREATININE 0.33 mg/dl (0.44-1.00); GLUCOSE 118 mg/dl (70-220); MAGNESIUM 1.7 mg/dl (1.7-2.5); POTASSIUM 3.6 mmol/L (3.5-5.1); SODIUM 136 mmol/L (135-144)
[2019-05-12] MEDS: BALSAM PERU/CASTOR OIL 60 GM TUBE TOP ×2 (08:48→21:11)
[2019-05-12] MEDS: DILTIAZEM 25 MG INJ IV ×2 (08:49→21:11)
[2019-05-12] MEDS: FAT EMULSION 20% 250 ML IV (15:11)
[2019-05-12] MEDS: FAMOTIDINE 20 MG INJ IV (21:10)
[2019-05-13] MEDS: LEVALBUTEROL (NEB) 0.63 MG/3 ML AMP HHN ×3 (01:12→13:24)
[2019-05-13] MEDS: ENOXAPARIN 60 MG/0.6 ML SYG SC (05:16)
[2019-05-13 06:53] LABS: ADD MAN DIFF? NO
[2019-05-13 06:55] LABS: WHITE BLOOD COUNT 7.1 10^3/ul (4.8-10.8)
[2019-05-13 06:55] LABS: BASOPHILS % 0.3 % (0.0-2.0); EOSINOPHILS % 0.4 % (0.0-7.0); HEMATOCRIT 27.7 % (37.0-47.0); HEMOGLOBIN 8.7 g/dl (12.0-16.0); LYMPHOCYTES # 1.4 10^3/ul (0.8-2.9); LYMPHOCYTES % 19.4 % (15.0-51.0); MEAN CORPUSCULAR HGB CONC 31.4 g/dl (32.0-37.0); MEAN CORPUSCULAR VOLUME 95.5 fl (82.0-101.0); MEAN PLATELET VOLUME 10.8 fl (7.4-10.4); MONOCYTE # 0.6 10^3/ul (0.3-0.9); MONOCYTES % 8.8 % (0.0-11.0); NEUTROPHIL # 4.7 10^3/ul (1.6-7.5); NEUTROPHILS % 66.6 % (39.0-77.0); PLATELET COUNT 215 10^3/UL (140-415); RED CELL DISTRIBUTION WIDTH 13.9 % (11.5-14.5)
[2019-05-13 07:17] LABS: MAGNESIUM 1.5 mg/dl (1.7-2.5)
[2019-05-13 07:17] LABS: PHOSPHORUS 3.5 mg/dl (2.5-4.9)
[2019-05-13 07:20] LABS: ANION GAP 2 (5-13); BLOOD UREA NITROGEN 26 mg/dl (7-20); CALCIUM 8.2 mg/dl (8.4-10.2); CARBON DIOXIDE 30 mmol/L (21-31); CHLORIDE 104 mmol/L (97-110); CREATININE 0.32 mg/dl (0.44-1.00); GLUCOSE 97 mg/dl (70-220); POTASSIUM 3.4 mmol/L (3.5-5.1); SODIUM 136 mmol/L (135-144)
[2019-05-13] MEDS: BALSAM PERU/CASTOR OIL 60 GM TUBE TOP (08:08)
[2019-05-13] MEDS: DILTIAZEM 25 MG INJ IV (08:09)
[2019-05-13] MEDS: MAGNESIUM SULFATE 2 GM/50 ML 50 ML IVPB (08:32)
[2019-05-13] MEDS: POTASSIUM CHLORIDE 100 ML IVPB ×2 (11:10→13:18)
[2019-05-13] MEDS: TPN 1,000 ML IV (12:43)
[2019-05-13] MEDS: FAT EMULSION 20% 250 ML IV (16:55)
== END 2019-05-13 18:08 | DRG 871 ==
LOC: E/R 04:18 → TEL 06:14
PROVIDERS: Internal Medicine
PROC: 30233N1 Transfusion of Nonautologous Red Blood Cells into Peripheral Vein, Percutaneous Approach (ICD-10-PCS; principal; 2019-04-23)
PROC: 02HV33Z Insertion of Infusion Device into Superior Vena Cava, Percutaneous Approach (ICD-10-PCS; 2019-05-07)
PROC: 3E0436Z Introduction of Nutritional Substance into Central Vein, Percutaneous Approach (ICD-10-PCS; 2019-05-07)
DX: A41.9 Sepsis, unspecified organism (principal); J69.0 Pneumonitis due to inhalation of food and vomit; J96.01 Acute respiratory failure with hypoxia; G92 Toxic encephalopathy; N17.9 Acute kidney failure, unspecified; N39.0 Urinary tract infection, site not specified; E87.2 Acidosis; E87.0 Hyperosmolality and hypernatremia; E44.1 Mild protein-calorie malnutrition; I82.622 Acute embolism and thrombosis of deep veins of left upper extremity; I13.0 Hypertensive heart and chronic kidney disease with heart failure and stage 1 through stage 4 chronic kidney disease, or unspecified chronic kidney disease; R65.20 Severe sepsis without septic shock; D63.8 Anemia in other chronic diseases classified elsewhere; D69.6 Thrombocytopenia, unspecified; E87.70 Fluid overload, unspecified; E86.0 Dehydration; E87.6 Hypokalemia; E83.51 Hypocalcemia; F31.9 Bipolar disorder, unspecified; G20 Parkinson's disease; F02.80 Dementia in other diseases classified elsewhere, unspecified severity, without behavioral disturbance, psychotic disturbance, mood disturbance, and anxiety; I25.10 Atherosclerotic heart disease of native coronary artery without angina pectoris; I50.9 Heart failure, unspecified; I25.2 Old myocardial infarction; M10.9 Gout, unspecified; M81.0 Age-related osteoporosis without current pathological fracture; N18.9 Chronic kidney disease, unspecified; R13.10 Dysphagia, unspecified; Z66 Do not resuscitate; Z74.01 Bed confinement status; Z68.23 Body mass index [BMI] 23.0-23.9, adult
CPT/HCPCS: 36430; 36569; 36600; 71045; 76937; 80048; 80053; 80202; 81001; 81003; 82043; 82803; 82962; 83605; 83735; 83935; 84100; 84134; 84155; 84300; 84443; 84478; 84484; 85025; 85610; 85730; 86850; 86900; 86901; 86920; 87040-91; 87086; 92526; 92610; 93005; 93970; 93971; 94640; 94664